=== PATIENT | female | born 1930 | race Caucasian/White ===

== ENCOUNTER → 2018-05-23 | Outpatient (CLI) | payer MEDICARE ==
[2018-05-23 10:12] LABS: BASO % 0.6 % (0.0-1.0); EOS # 0.1 10^3/uL (0.0-0.50); EOS % 1.7 % (0.0-3.0); HEMOGLOBIN 12.8 g/dl (12.0-15.5); IMMATURE GRANULOCYTE % 0.2 % (0-3.0); LYMPH % 19.9 % (24.0-44.0); MEAN CORPUSCULAR HEMOGLOBIN 31.8 pg (27.0-33.0); MEAN CORPUSCULAR VOLUME 99.3 fl (80.0-96.0); MONO # 0.4 10^3/uL (0.0-0.8); MONO % 7.9 % (0.0-5.0); NEUTROPHILS # 3.3 10^3/uL (1.8-7.7); NEUTROPHILS % 69.7 % (36.0-66.0); PLATELET COUNT, AUTOMATED 102 10^3/uL (150-450); RED BLOOD COUNT 4.03 10^6/uL (4.00-5.40); RED CELL DISTRIBUTION WIDTH 13.4 % (11.5-14.5); WHITE BLOOD COUNT 4.8 10^3/uL (4.0-10.0)
[2018-05-23 10:33] LABS: TOTAL PROTEIN 7.1 GM/DL (6.4-8.2)
[2018-05-23 10:34] LABS: ALBUMIN 4.2 GM/DL (3.2-5.2); ALKALINE PHOSPHATASE 123 U/L (45-117); ALT/SGPT 24 U/L (12-78); ANION GAP 5 MEQ/L (8-16); AST/SGOT 24 U/L (7-37); BILIRUBIN,TOTAL 0.7 MG/DL (0.2-1.0); BLOOD UREA NITROGEN 25 MG/DL (7-18); CALCIUM LEVEL 9.7 MG/DL (8.8-10.2); CARBON DIOXIDE LEVEL 30 MEQ/L (21-32); CHLORIDE LEVEL 106 MEQ/L (98-107); CREATININE FOR GFR 1.15 MG/DL (0.55-1.30); FERRITIN 61 NG/ML (8-252); GLOMERULAR FILTRATION RATE 47.4 (>32); GLUCOSE, FASTING 92 MG/DL (70-100); IRON (FE) 65 UG/DL (50-170); LDH LACTATE DEHYDROGENASE 194 U/L (84-246); PERCENT SATURATION 17.7 % (13.2-45.0); POTASSIUM SERUM 3.9 MEQ/L (3.5-5.1); RHEUMATOID FACTOR QUANT < 10.0 IU/ML (<15.0); SODIUM LEVEL 141 MEQ/L (136-145); TOTAL IRON BINDING CAPACITY 367 UG/DL (250-450); TOTAL PROTEIN 7.2 GM/DL (6.4-8.2)
[2018-05-23 11:12] LABS: ERYTHROCYTE SEDIMENTATION RATE 7 mm/hr (0-42)
[2018-05-25 11:14] LABS: ALBUMIN 4.27 GM/DL (3.29-5.55); ALBUMIN % 60.1 % (55.8-66.1); ALPHA-1-GLOBULIN % 4.8 % (2.9-4.9); ALPHA-1-GLOBULINS 0.34 GM/DL (0.17-0.41); ALPHA-2-GLOBULINS 0.77 GM/DL (0.42-0.99); ALPHA-2-GLOBULINS % 10.9 % (7.1-11.8); BETA-1-GLOBULINS 0.49 GM/DL (0.28-0.60); BETA-1-GLOBULINS % 6.9 % (4.7-7.2); BETA-2-GLOBULINS 0.31 GM/DL (0.19-0.55); BETA-2-GLOBULINS % 4.3 % (3.2-6.5); GAMMA GLOBULINS 0.92 GM/DL (0.65-1.58)
[2018-05-26 00:07] LABS: CYCLIC CITRULLINATED PEPTIDE 12 units (0-19)
[2018-05-26 00:07] LABS: ANTINUCLEAR ANTIBODIES DIRECT Negative (Negative)
== END ==
LOC: M RAD 08:52
DX: D61.818 Other pancytopenia (principal); J90 Pleural effusion, not elsewhere classified; R53.83 Other fatigue; R25.2 Cramp and spasm
CPT/HCPCS: 76700

== ENCOUNTER 2019-05-06 11:37 | Inpatient (IN) | payer MEDICARE ==
[~2019-05-06] VITALS: Ht 165.1 cm; Wt 57.7 kg
[~2019-05-06 11:37] MED LIST: AMBI5TAB PO; CARV6.25 PO; CENT1TAB PO; CENTCHW3 PO; ELIQ5TAB PO; ESTR62CR PV; FERR325T82 PO; HYDR-3363 PO; ISOS60TA2 PO; KLOR10TA76 PO; KLOR1TAB69 PO; LASI20TA3 PO; LEXA1TAB PO; LIPI10TA PO; LISI-538 PO; LISI10TA4 PO; MAGN250T7 PO; MELA3TAB49 PO; NEXI40CA PO; NITR4TASL SL; PLAV1TAB2 PO; REST0.05 OU; SIMB1SUS OU; TOPR50TA PO; TRAV0.006 OU; TRAV04OPD OU; TYLE1TAB5 PO; WARF-20 PO; WARF4TAB51 PO
[2019-05-06] MEDS ORDERED: ESCI20TA PO (12:02)
[2019-05-06] MEDS ORDERED: FERR1TAB8 PO (12:02)
[2019-05-06] MEDS ORDERED: SIMB1SUS OU (12:02)
[2019-05-06] MEDS ORDERED: LISI-538 PO (12:02)
[2019-05-06] MEDS ORDERED: ELIQ2.5T PO (12:02)
[2019-05-06] MEDS ORDERED: SENN18TA PO ×2 (12:02→12:08)
[2019-05-06] MEDS ORDERED: OCUVTAB4 PO (12:02)
[2019-05-06] MEDS ORDERED: MELA1TAB9 PO (12:02)
[2019-05-06] MEDS ORDERED: CENT1TAB PO (12:02)
[2019-05-06] MEDS ORDERED: FURO80TA2 PO (12:02)
[2019-05-06] MEDS ORDERED: ACET25TA12 PO (12:05)
[2019-05-06] MEDS ORDERED: ACET-683 PO (12:08)
[2019-05-06] MEDS ORDERED: MIRA3350 PO (12:08)
[2019-05-06] MEDS ORDERED: LOPE2CA PO (12:08)
[2019-05-06 12:32] LABS: BASO % 0.7 % (0.0-1.0); EOS # 0.1 10^3/uL (0.0-0.5); EOS % 1.5 % (0.0-3.0); HEMATOCRIT 45.1 % (36.0-47.0); HEMOGLOBIN 14.7 g/dl (12.0-15.5); LYMPH # 1.1 10^3/uL (1.5-5.0); LYMPH % 18.8 % (24.0-44.0); MEAN CORPUSCULAR HEMOGLOBIN 32.2 pg (27.0-33.0); MEAN CORPUSCULAR HGB CONC 32.6 g/dl (32.0-36.5); MEAN CORPUSCULAR VOLUME 98.9 fl (80.0-96.0); MONO # 0.6 10^3/uL (0.0-0.8); MONO % 10.7 % (0.0-5.0); NEUTROPHILS % 68.1 % (36.0-66.0); PLATELET COUNT, AUTOMATED 104 10^3/uL (150-450); RED BLOOD COUNT 4.56 10^6/uL (4.00-5.40); WHITE BLOOD COUNT 5.9 10^3/uL (4.0-10.0)
[2019-05-06 12:38] LABS: INR 1.2; PROTHROMBIN TIME 14.9 SECONDS (11.8-14.0)
--- NOTE | 2019-05-06 12:54 | REP ---
CT of the brain without IV contrast: Comparison is 12/09/2015. There is no hemorrhage. There is no edema, mass effect or midline shift. The sulci and ventricles are mildly dilated compatible with diffuse volume loss. This is unchanged. There are areas of decreased attenuation in the subcortical white matter, nonspecific, but likely a chronic microvascular ischemia. This is unchanged. There is hyperostosis frontalis interna, unchanged. Impression: There is no hemorrhage, acute infarct or mass. There are findings compatible with diffuse volume loss and chronic microvascular ischemia, unchanged. Hyperostosis frontalis interna, unchanged. Electronically Signed by Anthony Santos MD 05/06/2019 12:45 P
[2019-05-06 12:57] LABS: ALBUMIN 4.3 GM/DL (3.2-5.2); ALT/SGPT 32 U/L (12-78); BILIRUBIN,DIRECT 0.4 MG/DL (0.0-0.2); BILIRUBIN,TOTAL 1.1 MG/DL (0.2-1.0); BLOOD UREA NITROGEN 24 MG/DL (7-18); CARBON DIOXIDE LEVEL 29 MEQ/L (21-32); CHLORIDE LEVEL 105 MEQ/L (98-107); CK-MB VALUE MASS 1.8 NG/ML (<3.6); CPK CREATINE PHOSPHOKINASE 68 U/L (26-192); CREATININE FOR GFR 1.22 MG/DL (0.55-1.30); GLOMERULAR FILTRATION RATE 44.2 (>32); GLUCOSE, FASTING 111 MG/DL (70-100); MB/CK RELATIVE INDEX 2.65 (< OR =4); POTASSIUM SERUM 3.7 MEQ/L (3.5-5.1); SODIUM LEVEL 141 MEQ/L (136-145); TROPONIN I < 0.02 NG/ML (< 0.10)
--- NOTE | 2019-05-06 12:58 | REP ---
Portable chest, 12:32 p.m., single AP view with the patient upright: There are no comparison studies. The lung johnson are clear. The cardiac size is enlarged and the right cardiac margin has an unusual configuration. This may represent enlargement of the right atrium, pericardial cyst or myocardial aneurysm. There is a dual-chamber pacemaker. The cora are unremarkable. There is a vascular stent in the left axilla. There is widening of the superior mediastinum, possibly from thyroid enlargement. Impression: No acute cardiopulmonary findings. Unusual configuration of the right cardiac margin as discussed. Widening of the superior mediastinum, possibly from thyroid enlargement. There is a vascular stent in the left axilla. Electronically Signed by Anthony Santos MD 05/06/2019 12:50 P
[2019-05-06 18:00] VITALS: BP 90/47
[2019-05-06] MEDS ORDERED: SENNA 8.6 MG TAB (SENOKOT) PO PRN (18:45)
[2019-05-06] MEDS ORDERED: LOPERAMIDE 2 MG CAP PO PRN (18:45)
[2019-05-06] MEDS ORDERED: MIRALAX *UNIT DOSE* 17GM PACKET PO PRN (18:45)
--- NOTE | 2019-05-06 18:54 | HPE ---
DATE OF ADMISSION: 05/06/2019 CHIEF COMPLAINT: Confusion. HISTORY OF PRESENT ILLNESS: This is an 88-year-old female who was brought in by ambulance after [facility] staff had noted that she was staring at her dresser and randomly picking out clothes last night. When they checked up on her again today, the patient was not any different. The could not provide any history as he could not recall how he ended up in the emergency room with his . Per the patient, she denies any nausea, vomiting, abdominal pain, fever, chills, cough. Denies any dysuria, urgency, frequency, back pain or flank pain. In the emergency room, evaluation included a complete blood count (CBC) and metabolic panel, which were all essentially normal. CT showed diffuse volume loss and chronic microvascular ischemia. Chest x-ray was unremarkable and did not show any pneumonia. There was widening of the superior mediastinum, possibly from thyroid enlargement, and a vascular stent in the left axilla. The and patient could not provide any history. The hospitalist service was asked to admit for evaluation of confusion and potential placement since pt may not be safe at home anymore. At this time, urinalysis was negative. No empiric antibiotics are to be given. PAST MEDICAL HISTORY: 1. 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 Murcia, oncology. 2. Atrial fibrillation. 3. Heart failure. 4. Hypertension. 5. Hyperlipidemia. 6. History of kidney stones. 7. Insomnia. PAST SURGICAL HISTORY: 1. Hysterectomy. 2. Pacer. 3. Coronary artery stents. 4. Cardiac ablation for atrial fibrillation. 5. Tonsillectomy. 6. Hernia repair. 7. Hysterectomy. ALLERGIES: SULFA and NIACIN. SOCIAL HISTORY: The patient lives with her at [facility]. The patient denies any smoking, alcohol use. 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 Two children. HOME MEDICATIONS: - acetaminophen 1 gram every 8 hours as needed for pain - Eliquis 2.5 mg twice a day - Lipitor 10 mg daily - Coreg 6.25 twice a day - Lexapro 20 mg daily - Nexium 40 mg daily - ferrous sulfate 325 mg every 2 days - Lasix 80 mg daily - isosorbide 30 mg daily - Lisinopril 10 mg daily - loperamide 4 mg as needed - multivitamin one tablet in the evening - nitroglycerin as needed - MiraLAX 17 grams as needed - potassium 40 mEq daily - Senokot 8.6 mg as needed - Travatan one drop OU at night - PreserVision one tablet at night - acetaminophen diphenhydramine two tablets at night - Simbrinza one drop OU three times a day - Restasis one drop OU twice a day - magnesium oxide 250 mg daily - melatonin 5 mg at night REVIEW OF SYSTEMS: As per history of present illness. Further questioning is difficult as the patient is confused and has tangential conversations. PHYSICAL EXAMINATION: VITAL SIGNS: Temperature 97.4, pulse 69, respiratory rate 17, blood pressure 115/82, 100% on room air. GENERAL: The patient is awake, alert, oriented to herself only. She is not oriented to time or place. No respiratory distress. No use of respiratory accessory muscles. Pupils are round and reactive. No icterus or jaundice. There is no pallor. Speech is fluent. NECK: No cervical lymphadenopathy. There is some thyromegaly noted with thyroid enlargement. No difficulty with dysphagia or stridor on examination. LUNGS: Clear to auscultation. No wheezing, rales or rhonchi. HEART: S1, S2. Irregular. ABDOMEN: Soft, nontender, nondistended. Positive bowel sounds. EXTREMITIES: No cyanosis or clubbing. NEUROLOGIC: Awake, alert, oriented to person only. Disoriented to place and time. The patient has no horizontal or vertical nystagmus. Face is symmetric. No tremors noted. 5/5 motor function times four extremities. Gait was not tested. No sensory disturbance. Tongue is midline. Downgoing bilateral toes. Negative Babinski bilaterally. White count 5.9, hemoglobin 14, hematocrit 45, platelet count 104. Sodium 141, potassium 2.7, chloride 105, bicarbonate 29, BUN 24, creatinine 1.22, glucose 111, total bilirubin 1.1, direct bilirubin 0.4, AST 24, ALT 32, alkaline phosphatase 112, total CK 68, MB fraction 1.8, troponin less than 0.02, total protein 8, albumin 4.3, TSH 1.17. Urine culture is pending. IMAGING STUDIES: CT of the head shows diffuse volume loss, chronic microvascular ischemia, which is unchanged. No hemorrhage, edema, mass effect or midline shift. Sulci and ventricles are dilated, compatible with diffuse volume loss. This is unchanged. Areas of decreased attenuation in the cortical white matter. Nonspecific but likely a chronic microvascular ischemia. No hemorrhage, acute infarct or mass. Hyperostosis from talis interna, which is unchanged. Chest x-ray on 05/06/2019 showed no acute cardiopulmonary findings, widening of the superior mediastinum, most likely due to thyroid enlargement. Urinalysis showed pH 6, clear appearance, negative nitrite, trace leukocyte esterase, 6 WBCs, negative bacteria, 4 RBCs. INR 1.20, glucose of 112. ASSESSMENT AND PLAN: This is an 88-year-old female with a history of atrial fibrillation without CVA, chronic thrombocytopenia, possible myelodysplastic syndrome, followed by hematology, dyslipidemia , hypertension, insomnia, kidney stones, cardiac ablation for atrial fibrillation, pacemaker placement, coronary artery stents, coronary artery disease, who presents with confusion, staring into space at [facility], was brought in for further evaluation. Prolactin level is pending. The patient is admitted for the following issues: 1. Altered mental status. At this time, the patient appears to have worsening dementia. No acute findings on basic workup. CBC and metabolic panel are unremarkable. The patient has no signs of infection, both chest x-ray and urine are negative. She has no fever. No empiric antibiotics are warranted. Obtain an electroencephalogram (EEG) in the morning and check prolactin level for a possible stroke. CT of the head shows chronic microvascular changes. She may be resumed on all of her home medications. We will consult neurology if the patient has no significant improvement, may benefit from Aricept or Namenda. 2. Atrial fibrillation. On chronic Eliquis. Coreg for rate control. check MRI brain. 3. Hypertension. On isosorbide, Lisinopril, and Coreg. 4. Chronic iron deficiency. Continue on ferrous sulfate. 5. Chronic constipation. Continue on bowel regimen, including MiraLAX, Senokot. 6. Dyslipidemia. Continue on Lipitor. disposition: pfs consulted as pt is not safe for d/c home due to worsening dementia. MTDD
[2019-05-06] MEDS: NS 1,000 ML IV SCH (18:57)
[2019-05-06 20:00] VITALS: BP 96/54
--- NOTE | 2019-05-06 20:31 | ECGEPIP ---
[facility] - ED Test Date: 2019-05-06 Pat Name: JOSEMANUEL BRAVO Department: Room: - Gender: Female Comb Winder: sb : 1930 Requested By: Teena Serna Order Number: [id number] Reading MD: Teena Serna Measurements Intervals [place] Rate: 70 P: [place]: 0 QRS: -84 QRSD: 169 T: 95 QT: 466 QTc: 505 Interpretive Statements ELECTRONIC VENTRICULAR PACEMAKER ABNORMAL RHYTHM ECG SIMILAR 12/09/15 Electronically Signed on 05-06-2019 20:30:52 EDT by Teena Seran
[2019-05-06] MEDS: APIXABAN 2.5 MG TAB (ELIQUIS) PO SCH (20:52)
[2019-05-06] MEDS: ACETAMINOPHEN 500 MG TAB PO PRN (20:52)
[2019-05-06] MEDS: MULTIVITAMINS/MINERALS THERAP 1 TAB PO SCH (20:53)
[2019-05-06] MEDS: CARVedilol 6.25 MG TAB PO SCH (20:53)
[2019-05-06] MEDS: LATANOPROST 0.005% OPHTH SOLN 2.5 ML OU SCH (21:23)
[2019-05-06 23:59] VITALS: BP 98/52
[2019-05-07 04:00] VITALS: BP 113/61
[2019-05-07 06:08] LABS: HEMATOCRIT 38.9 % (36.0-47.0); MEAN CORPUSCULAR HEMOGLOBIN 31.7 pg (27.0-33.0); MEAN CORPUSCULAR HGB CONC 32.4 g/dl (32.0-36.5); MEAN CORPUSCULAR VOLUME 97.7 fl (80.0-96.0); RED BLOOD COUNT 3.98 10^6/uL (4.00-5.40); WHITE BLOOD COUNT 4.1 10^3/uL (4.0-10.0)
[2019-05-07 06:35] LABS: ALBUMIN 3.5 GM/DL (3.2-5.2); CALCIUM LEVEL 9.3 MG/DL (8.8-10.2); CREATININE FOR GFR 0.97 MG/DL (0.55-1.30); GLOMERULAR FILTRATION RATE 57.6 (>32); POTASSIUM SERUM 3.4 MEQ/L (3.5-5.1); TOTAL PROTEIN 6.6 GM/DL (6.4-8.2)
[2019-05-07 06:47] LABS: HEMOGLOBIN 12.6 g/dl (12.0-15.5); PLATELET COUNT, AUTOMATED 92 10^3/uL (150-450)
[2019-05-07] MEDS ORDERED: POTASSIUM CHLORIDE 10% LIQ 20 MEQ/15 ML UDC PO ONE (07:45)
[2019-05-07 08:00] VITALS: BP 120/62
[2019-05-07] MEDS: POTASSIUM CHLORIDE 10 MEQ SR TABLET PO SCH (08:28)
[2019-05-07] MEDS: ATORVASTATIN 10 MG TAB PO SCH (08:28)
[2019-05-07] MEDS: PANTOPRAZOLE 40MG TAB (PROTONIX) PO SCH (08:28)
[2019-05-07] MEDS: APIXABAN 2.5 MG TAB (ELIQUIS) PO SCH ×2 (08:28→20:11)
[2019-05-07] MEDS: ESCITALOPRAM OXALATE 10 MG TAB (LEXAPRO) PO SCH (08:28)
[2019-05-07] MEDS: ISOSORBIDE MON. (IMDUR) 30 MG XR TAB PO SCH (08:30)
[2019-05-07] MEDS: CARVedilol 6.25 MG TAB PO SCH ×2 (08:31→20:11)
[2019-05-07] MEDS: LISINOPRIL 10 MG TAB PO SCH (08:31)
[2019-05-07] MEDS: NS 1,000 ML IV SCH (08:31)
[2019-05-07 12:00] VITALS: BP 134/67
--- NOTE | 2019-05-07 13:45 | IPN ---
DATE OF SERVICE: 05/07/2019 The patient remains disoriented. Does not know where she is, and she does not know the date and time. She is able to say her name, Maria G Vargas. She has purposeful movements. Otherwise, cooperative and following commands. She denies any shortness of breath, chest pain, pressure, tightness, lightheadedness, or dizziness. Has not been up from bed yet and did not have any breakfast this morning yet. Slept well last night. Denies any paroxysmal nocturnal dyspnea or orthopnea or dyspnea on exertion yesterday. Tolerating diet well. Denies any cough, fever, or chills. Temperature 97.5, pulse 70, respiratory rate 18, blood pressure 134/67, 98% on room air. Generally, the patient is awake, alert, oriented to person only. She does answer questions appropriately but is tangential. Not using any respiratory accessory muscles. Anicteric sclerae. No jaundice. Very dry mucous membranes. Poor dentition. No jugular venous distention. No cervical lymphadenopathy. Slight thyroid enlargement. No complaints of dysphagia or odynophagia. LUNGS: Are diminished but clear to auscultation. No wheezing, rales, or rhonchi. HEART: S1, S2 with sinus rhythm. ABDOMEN: Soft, nontender, nondistended. Scaphoid abdomen. No rebound, guarding. No hepatosplenomegaly. No abdominal bruits. Positive bowel sounds times four quadrants. EXTREMITIES: No cyanosis, clubbing, or any pitting edema. Neurologically, the patient has no facial asymmetry. Tongue is midline. Uvula is midline. No dysmetria on [id number] testing. Motor function is 5/5 times four extremities. No sensory disturbance. Gait was not tested. Downgoing toes negative. Babinski bilaterally. LABORATORY DATA: White count 4, hemoglobin 12, hematocrit 38, platelet count 92. Sodium 142, potassium 3.4, chloride 110, bicarbonate 25, BUN 20, creatinine 0.97, glucose of 104, lactic acid of 1.4, calcium 9.3, total bilirubin of 1, AST 21, ALT 28, alkaline phosphatase of 91, procalcitonin is pending, albumin is 3.5, prolactin is 11, TSH is 1.17. Urine culture contaminated. Urinalysis: Clear appearance, negative nitrite, trace leukocyte esterase, 6 WBCs, 4 RBCs, negative bacteria. CT of the head 05/06/2019: Diffuse volume loss and chronic microvascular ischemia, unchanged. Hyperostosis frontalis interna, which is unchanged. No hemorrhage, mass effect. Chest x-ray: No acute cardiopulmonary finding, widening of the superior mediastinum from possible thyroid enlargement. Vascular stent in the left axilla. ASSESSMENT AND PLAN: This is an 88-year-old female with history of possible myelodysplastic syndrome with chronic thrombocytopenia follows with oncologist Dr. Divina Herr, atrial fibrillation on chronic anticoagulation, heart failure unknown ejection fraction, hypertension, hyperlipidemia, history of kidney stones, and insomnia, who was brought into the emergency room from [facility] due to altered mental status when the patient was staring at her dresser, removing clothes randomly. Both the patient and her are unable to provide history. A CT of the head showed no cerebrovascular accident (CVA). Blood work is essentially normal. Chest x-ray has no signs of pneumonia, and urinalysis (UA) is unremarkable. Due to safety reasons, the patient was admitted for possible potential placement. The patient's son will be contacted, [phone], Mike Vargas, for healthcare proxy guidance for placement. ACTIVE ISSUES: 1. Worsening chronic dementia without signs of acute infection. The patient is unsafe to be discharged home, as her is also quite demented and has no recollection of any recent events. There does not appear to be a need for empiric antibiotics at this time. She appears to be stable. Lactic acid is normal. She is afebrile with normal white count. Will obtain an electroencephalogram (EEG) to rule out possible seizure activity. MRI of the brain, if it can be done, will be to complete the evaluation. 2. Atrial fibrillation (AFib). On chronic Eliquis. CT of the head showed no acute CVA or hemorrhagic stroke. Coreg for rate control. 3. Hypertension. Stable on isosorbide, Lisinopril, and Coreg with holding parameters for systolic pressure of less than 140. Intravenous (IV) fluids have been discontinued. 4. Chronic iron deficiency. On ferrous sulfate. 5. Chronic constipation. On bowel regimen. 6. Dyslipidemia. On Lipitor. DISPOSITION: The patient is medically stable for transfer to medical-surgical floor. Discontinue the patient's telemetry, and she is stable for alternate level of care (ALC) and group home facility (SNF) placement. [facility]
[2019-05-07 16:00] VITALS: BP 117/42
[2019-05-07] MEDS: OCUVITE 1 TAB PO SCH (18:02)
[2019-05-07] MEDS: MULTIVITAMINS/MINERALS THERAP 1 TAB PO SCH (18:02)
[2019-05-07 20:00] VITALS: BP 116/46
[2019-05-07] MEDS: FERROUS SULFATE 325MG TAB PO SCH (20:11)
[2019-05-07] MEDS: LATANOPROST 0.005% OPHTH SOLN 2.5 ML OU SCH (20:11)
[2019-05-07] MEDS: ACETAMINOPHEN 500 MG TAB PO PRN (20:12)
[2019-05-07 23:59] VITALS: BP 116/52
[2019-05-08 04:00] VITALS: BP 122/56
[2019-05-08 06:26] LABS: HEMATOCRIT 40.6 % (36.0-47.0); HEMOGLOBIN 13.2 g/dl (12.0-15.5); MEAN CORPUSCULAR HEMOGLOBIN 32.5 pg (27.0-33.0); MEAN CORPUSCULAR HGB CONC 32.5 g/dl (32.0-36.5); RED BLOOD COUNT 4.06 10^6/uL (4.00-5.40); WHITE BLOOD COUNT 5.4 10^3/uL (4.0-10.0)
[2019-05-08 06:29] LABS: PLATELET COUNT, AUTOMATED 88 10^3/uL (150-450)
[2019-05-08 06:40] LABS: BLOOD UREA NITROGEN 20 MG/DL (7-18); CALCIUM LEVEL 9.5 MG/DL (8.8-10.2); CARBON DIOXIDE LEVEL 25 MEQ/L (21-32); CHLORIDE LEVEL 111 MEQ/L (98-107); CREATININE FOR GFR 0.92 MG/DL (0.55-1.30); GLOMERULAR FILTRATION RATE > 60.0 (>32); GLUCOSE, FASTING 110 MG/DL (70-100); POTASSIUM SERUM 3.9 MEQ/L (3.5-5.1); SODIUM LEVEL 141 MEQ/L (136-145)
[2019-05-08 08:00] VITALS: BP 120/62
[2019-05-08] MEDS: CARVedilol 6.25 MG TAB PO SCH ×2 (08:15→20:23)
[2019-05-08] MEDS: LISINOPRIL 10 MG TAB PO SCH (08:16)
[2019-05-08] MEDS: ISOSORBIDE MON. (IMDUR) 30 MG XR TAB PO SCH (08:16)
[2019-05-08] MEDS: POTASSIUM CHLORIDE 10 MEQ SR TABLET PO SCH (08:20)
[2019-05-08] MEDS: APIXABAN 2.5 MG TAB (ELIQUIS) PO SCH ×2 (08:20→20:23)
[2019-05-08] MEDS: ATORVASTATIN 10 MG TAB PO SCH (08:20)
[2019-05-08] MEDS: PANTOPRAZOLE 40MG TAB (PROTONIX) PO SCH (08:20)
[2019-05-08] MEDS: ESCITALOPRAM OXALATE 10 MG TAB (LEXAPRO) PO SCH (08:20)
[2019-05-08] MEDS: ACETAMINOPHEN 500 MG TAB PO PRN (08:21)
--- NOTE | 2019-05-08 08:35 | IPN ---
DATE OF SERVICE: 05/08/2019 Per night nurse, the patient remained extremely confused and disoriented, only knowing her name and was anxious to go home. The patient had to be reoriented and was cooperative. She did not require a sitter overnight. This morning, the patient refused to have some breakfast and says "no thank you". She denies any chest pain, pressure, tightness, shortness of breath, dysuria, urgency, frequency, fever, chills or flank pain. Maria G states that she usually walks with a cane, but has not been ambulating as much as at home. Temperature 97.6, pulse 72, respiratory rate 16, blood pressure 122/56, 98% on room air. Generally, awake, alert, oriented to person only. The patient is extremely disoriented, thinks it is 1959, does not know where she is. She has no respiratory distress. No cyanosis. No pallor. No icterus or jaundice. Poor dentition. Dry mucous membranes. Disheveled appearing. Appears her stated age. Lungs are clear to auscultation. Air entry is equal bilaterally. Heart: S1 and S2, sinus rhythm. Abdomen is soft, nontender, nondistended. Positive bowel sounds times four quadrant. No rebound or guarding. Scaphoid abdomen. No hepatosplenomegaly. Extremities: No cyanosis, clubbing or pitting edema. Neurologically, the patient is awake, alert, oriented to person only. She has no facial asymmetry. Tongue is midline. Uvula is midline. No dysmetria on finger to nose testing. Motor function is 5/5 times four extremities. Gait was not tested. No sensory disturbance. Down going toes. LABORATORY DATA: White count 5.4, hemoglobin 13, hematocrit 40, platelet count 88, sodium 141, potassium 3.9, chloride 88, bicarbonate 25, BUN 20, creatinine 0.92, glucose 110. Microbiology: Respiratory panel and urine cultures are negative. Chest x-ray with no acute cardiopulmonary process, widening of the superior mediastinum, possibly from thyroid enlargement. TSH is within normal limits ASSESSMENT AND PLAN: 88-year-old female admitted for potential placement and found to be staring. She has history of chronic thrombocytopenia and follows with oncologist Dr. Divina Herr, atrial fibrillation on chronic anticoagulation, heart failure unknown ejection fraction, hypertension, dyslipidmia, and kidney stones. Both patient and her were unable to provide a history. The patient was found b [facility] staff to be staring into space removing clothes from her dresser randomly. Due to safety reasons, the patient was admitted for placement. ACTIVE ISSUES: 1. Worsening chronic dementia without signs of any infection. The patient is unsafe to be discharged home with her elderly due to reports of patient staring into space. Electroencephalogram was ordered. Awaiting results. No empiric antiepileptic medications as patient has not had any recurrent episodes. 2. Atrial fibrillation. Currently rate controlled on chronic anticoagulation. 3. Iron deficiency. On iron every 48 hours. 4. Dyslipidemia. On chronic Lipitor. 5. Depression. On Lexapro. 6. Reflux. On Protonix. 7. Hypertension. Controlled on lisinopril, isosorbide and Coreg with holding parameters. 8. Chronic constipation. On a bowel regimen. DISPOSITION: The patient may be changed to alternate level of care (ALC) status after three hospital days as an inpatient and will need social placement to [facility]. JULISSA
--- NOTE | 2019-05-08 08:41 | EEG ---
DATE OF STUDY: 05/07/2019 REFERRING PHYSICIAN: Dr. Anna Guerrero DIAGNOSIS: Altered mental status. EEG Number: [id number] HISTORY: The patient is an 88-year-old woman with history of atrial fibrillation, myelodysplastic syndrome who lives at [facility] and was brought in for staring into space and confusion. This electroencephalogram (EEG) was done to rule out epileptic potential. She is currently taking Eliquis ,Lipitor, carvedilol, Lexapro, lisinopril, Protonix, etc.. TECHNICAL DESCRIPTION: This digital EEG was recorded by 21 scalp, ear, and two electrocardiogram (EKG) electrodes and was reviewed in bipolar and referential montages following reformatting in 10-20 international electrode placement system. INTERPRETATION: The patient was noted to be in awake and drowsy states during this EEG. Resting awake background rhythm consisted of 5-6 Hz theta activity measuring 15-40 microvolts in amplitude, which was symmetric bilaterally. The patient remained drowsy throughout this EEG. No clear sleep stages were identified. Hyperventilation could not be performed. Photic stimulation remained unremarkable. EKG revealed irregular heartbeat and atrial fibrillation. No focal, lateralizing, or epileptiform abnormalities were seen. No clinical or electrographic seizures were recorded. CONCLUSION: This EEG in awake and drowsy states is abnormal due to presence of generalized slowing and disorganization of background consistent with nonspecific diffuse cerebral dysfunction such as seen in encephalopathy due to multiple potential causes. No epileptiform abnormalities were seen. Clinical correlation is recommended in this patient. MTDD
[2019-05-08 12:00] VITALS: BP 117/62
[2019-05-08 16:00] VITALS: BP 147/53
[2019-05-08] MEDS: MULTIVITAMINS/MINERALS THERAP 1 TAB PO SCH (16:16)
[2019-05-08] MEDS: OCUVITE 1 TAB PO SCH (17:35)
[2019-05-08 20:00] VITALS: BP 150/66
[2019-05-08] MEDS: LATANOPROST 0.005% OPHTH SOLN 2.5 ML OU SCH (20:23)
[2019-05-08 22:00] VITALS: BP 162/90
[2019-05-09 06:00] VITALS: BP 180/90
[2019-05-09] MEDS: LISINOPRIL 10 MG TAB PO SCH (06:35)
[2019-05-09] MEDS: ESCITALOPRAM OXALATE 10 MG TAB (LEXAPRO) PO SCH (08:57)
[2019-05-09] MEDS: ATORVASTATIN 10 MG TAB PO SCH (08:57)
[2019-05-09] MEDS: POTASSIUM CHLORIDE 10 MEQ SR TABLET PO SCH (08:57)
[2019-05-09] MEDS: APIXABAN 2.5 MG TAB (ELIQUIS) PO SCH ×2 (08:58→20:22)
[2019-05-09] MEDS: CARVedilol 6.25 MG TAB PO SCH ×2 (08:58→20:23)
[2019-05-09] MEDS: PANTOPRAZOLE 40MG TAB (PROTONIX) PO SCH (08:58)
[2019-05-09] MEDS: ISOSORBIDE MON. (IMDUR) 30 MG XR TAB PO SCH (09:00)
--- NOTE | 2019-05-09 11:22 | IPNPDOC ---
Subjective Date Seen The patient was seen on 05/09/19. Subjective Chief Complaint/HPI Does not offer any complaints this morning. Did not remember that she was in the hospital . She was anxious as she said that she woke up and it was dark and she could not remember where she was. After reminding her that she was in the hospital she asked if it was the hospital in [place] or not. She then coud tell me the name of the hospital. Objective Physical Examination General Exam: Positive: Alert, Cooperative, No Acute Distress, Other (pleasantly confused) Eye Exam: Positive: PERRLA, Conjunctiva & lids normal, EOMI; Negative: Sclera icteric ENT Exam: Positive: Atraumatic, Mucous membr. moist/pink, Pharynx Normal Neck Exam: Positive: Supple; Negative: JVD, thyromegaly Chest Exam: Positive: Clear to auscultation, Normal air movement Heart Exam: Positive: Rate Normal, Regular Rhythm, Normal S1, Normal S2; Negative: Murmurs, Rubs Abdomen Exam: Positive: Normal bowel sounds, Soft; Negative: Tenderness, Hepatospenomegaly Extremity Exam: Positive: Normal pulses; Negative: Clubbing, Cyanosis, Edema Skin Exam: Positive: Nl turgor and temperature; Negative: Rash, Breakdown Psych Exam: Positive: Anxiety, Other (oriented to person only) Assessment /Plan Assessment 88-year-old female with history of chronic thrombocytopenia and follows with oncologist Dr. Divina Herr, atrial fibrillation on chronic anticoagulation, heart failure unknown ejection fraction, hypertension, dyslipidmia, and kidney stones was brought in as she was found by [facility] staff to be staring into space removing clothes from her dresser randomly. Both patient and her reside there. They were unable to provide a history. Due to safety reasons, the patient was admitted for placement. Worsening chronic dementia without signs of any infection. The patient is unsafe to be discharged home with her elderly due to reports of patient staring into space. No empiric antiepileptic medications as patient has not had any recurrent episodes. EEG reviewed Back ground sowing not epileptiform focus. Atrial fibrillation. Currently rate controlled on chronic anticoagulation. Macrocytosis will check vit B12 and folate levels. Iron deficiency. On iron every 48 hours. Dyslipidemia. On chronic Lipitor. Depression. On Lexapro. Reflux. On Protonix . Hypertension. Controlled on lisinopril, isosorbide and Coreg with holding parameters. Chronic constipation. On a bowel regimen. DISPOSITION: [facility] placement. Plan/VTE VTE Prophylaxis Ordered?: Yes VS, I&O, 24H, Fishbone Vital Signs/I&O Vital Signs Date Time Temp Pulse Resp B/P (MAP) Pulse Ox O2 Delivery O2 Flow Rate FiO2 05/09/19 09:00 127/90 05/09/19 08:58 75 05/09/19 06:00 98.5 20 99 05/06/19 17:53 Room Air I&O- Last 24 Hours up to 6 AM 05/09/19 05:59 Intake Total 918 ml Output Total 1100 ml Balance -182 ml Laboratory Data Microbiology Microbiology 05/08/19 Urine Culture - Final, Complete 05/07/19 Respiratory Virus Panel (PCR) (ELVA) - Final, Complete 05/06/19 Urine Culture - Final, Complete HUMBLE TOSCANO MD May 09, 2019 11:22
[2019-05-09 13:53] LABS: FOLATE > 24.0 NG/ML (>5.4); VITAMIN B12 LEVEL 760 PG/ML (247-911)
[2019-05-09 14:00] VITALS: BP 155/78
[2019-05-09] MEDS: OCUVITE 1 TAB PO SCH (18:20)
[2019-05-09] MEDS: MULTIVITAMINS/MINERALS THERAP 1 TAB PO SCH (18:20)
[2019-05-09] MEDS: FERROUS SULFATE 325MG TAB PO SCH (20:22)
[2019-05-09] MEDS: LATANOPROST 0.005% OPHTH SOLN 2.5 ML OU SCH (20:24)
[2019-05-09 22:00] VITALS: BP 126/80
[2019-05-10] MEDS: ACETAMINOPHEN 500 MG TAB PO PRN (00:21)
[2019-05-10 06:00] VITALS: BP 136/87
[2019-05-10] MEDS: PANTOPRAZOLE 40MG TAB (PROTONIX) PO SCH (08:57)
[2019-05-10] MEDS: LISINOPRIL 10 MG TAB PO SCH (08:58)
[2019-05-10] MEDS: ISOSORBIDE MON. (IMDUR) 30 MG XR TAB PO SCH (08:58)
[2019-05-10] MEDS: ATORVASTATIN 10 MG TAB PO SCH (08:58)
[2019-05-10] MEDS: ESCITALOPRAM OXALATE 10 MG TAB (LEXAPRO) PO SCH (08:58)
[2019-05-10] MEDS: POTASSIUM CHLORIDE 10 MEQ SR TABLET PO SCH (08:58)
[2019-05-10] MEDS: APIXABAN 2.5 MG TAB (ELIQUIS) PO SCH ×2 (08:58→21:08)
[2019-05-10] MEDS: CARVedilol 6.25 MG TAB PO SCH ×2 (08:59→21:11)
[2019-05-10] MEDS: OCUVITE 1 TAB PO SCH (16:53)
[2019-05-10] MEDS: MULTIVITAMINS/MINERALS THERAP 1 TAB PO SCH (16:53)
[2019-05-10 20:00] VITALS: BP 156/84
[2019-05-10] MEDS: LATANOPROST 0.005% OPHTH SOLN 2.5 ML OU SCH (21:07)
[2019-05-11 06:00] VITALS: BP 159/86
[2019-05-11] MEDS: PANTOPRAZOLE 40MG TAB (PROTONIX) PO SCH (08:25)
[2019-05-11] MEDS: APIXABAN 2.5 MG TAB (ELIQUIS) PO SCH ×2 (08:25→21:33)
[2019-05-11] MEDS: POTASSIUM CHLORIDE 10 MEQ SR TABLET PO SCH (08:25)
[2019-05-11] MEDS: ESCITALOPRAM OXALATE 10 MG TAB (LEXAPRO) PO SCH (08:25)
[2019-05-11] MEDS: ATORVASTATIN 10 MG TAB PO SCH (08:25)
[2019-05-11] MEDS: CARVedilol 6.25 MG TAB PO SCH ×2 (08:33→21:33)
[2019-05-11] MEDS: LISINOPRIL 10 MG TAB PO SCH (08:33)
[2019-05-11] MEDS: ISOSORBIDE MON. (IMDUR) 30 MG XR TAB PO SCH (08:33)
[2019-05-11] MEDS: MULTIVITAMINS/MINERALS THERAP 1 TAB PO SCH (17:12)
[2019-05-11] MEDS: OCUVITE 1 TAB PO SCH (17:12)
[2019-05-11] MEDS: FERROUS SULFATE 325MG TAB PO SCH (21:33)
[2019-05-11] MEDS: LATANOPROST 0.005% OPHTH SOLN 2.5 ML OU SCH (21:33)
[2019-05-11] MEDS: ACETAMINOPHEN 500 MG TAB PO PRN (23:22)
[2019-05-12 06:00] VITALS: BP 176/93
[2019-05-12] MEDS: LISINOPRIL 10 MG TAB PO SCH (08:20)
[2019-05-12] MEDS: POTASSIUM CHLORIDE 10 MEQ SR TABLET PO SCH (08:20)
[2019-05-12] MEDS: ESCITALOPRAM OXALATE 10 MG TAB (LEXAPRO) PO SCH (08:20)
[2019-05-12] MEDS: ISOSORBIDE MON. (IMDUR) 30 MG XR TAB PO SCH (08:21)
[2019-05-12] MEDS: APIXABAN 2.5 MG TAB (ELIQUIS) PO SCH ×2 (08:21→20:54)
[2019-05-12] MEDS: ATORVASTATIN 10 MG TAB PO SCH (08:21)
[2019-05-12] MEDS: CARVedilol 6.25 MG TAB PO SCH ×2 (08:21→20:54)
[2019-05-12] MEDS: PANTOPRAZOLE 40MG TAB (PROTONIX) PO SCH (08:21)
[2019-05-12] MEDS: OCUVITE 1 TAB PO SCH (18:12)
[2019-05-12] MEDS: MULTIVITAMINS/MINERALS THERAP 1 TAB PO SCH (18:12)
[2019-05-12] MEDS: LATANOPROST 0.005% OPHTH SOLN 2.5 ML OU SCH (21:01)
[2019-05-12 22:00] VITALS: BP 177/92
[2019-05-13 05:52] LABS: BASO % 0.5 % (0.0-1.0); EOS # 0.1 10^3/uL (0.0-0.5); HEMATOCRIT 35.2 % (36.0-47.0); HEMOGLOBIN 11.5 g/dl (12.0-15.5); LYMPH # 1.2 10^3/uL (1.5-5.0); LYMPH % 30.3 % (24.0-44.0); MEAN CORPUSCULAR HEMOGLOBIN 32.2 pg (27.0-33.0); MEAN CORPUSCULAR HGB CONC 32.7 g/dl (32.0-36.5); MEAN CORPUSCULAR VOLUME 98.6 fl (80.0-96.0); MONO # 0.4 10^3/uL (0.0-0.8); MONO % 10.3 % (0.0-5.0); NEUTROPHILS # 2.3 10^3/uL (1.5-8.5); NEUTROPHILS % 56.7 % (36.0-66.0); RED BLOOD COUNT 3.57 10^6/uL (4.00-5.40); WHITE BLOOD COUNT 4.1 10^3/uL (4.0-10.0)
[2019-05-13 06:00] VITALS: BP 150/86
[2019-05-13 06:02] LABS: PLATELET COUNT, AUTOMATED 95 10^3/uL (150-450)
[2019-05-13 06:08] LABS: CALCIUM LEVEL 9.4 MG/DL (8.8-10.2); CREATININE FOR GFR 1.08 MG/DL (0.55-1.30); GLOMERULAR FILTRATION RATE 50.9 (>32)
[2019-05-13] MEDS: ATORVASTATIN 10 MG TAB PO SCH (08:37)
[2019-05-13] MEDS: CARVedilol 6.25 MG TAB PO SCH ×2 (08:37→20:35)
[2019-05-13] MEDS: ISOSORBIDE MON. (IMDUR) 30 MG XR TAB PO SCH (08:37)
[2019-05-13] MEDS: PANTOPRAZOLE 40MG TAB (PROTONIX) PO SCH (08:37)
[2019-05-13] MEDS: POTASSIUM CHLORIDE 10 MEQ SR TABLET PO SCH (08:37)
[2019-05-13] MEDS: APIXABAN 2.5 MG TAB (ELIQUIS) PO SCH ×2 (08:38→20:36)
[2019-05-13] MEDS: ESCITALOPRAM OXALATE 10 MG TAB (LEXAPRO) PO SCH (08:38)
[2019-05-13] MEDS: LISINOPRIL 10 MG TAB PO SCH (08:38)
[2019-05-13] MEDS: OCUVITE 1 TAB PO SCH (16:58)
[2019-05-13] MEDS: MULTIVITAMINS/MINERALS THERAP 1 TAB PO SCH (16:58)
[2019-05-13] MEDS: FERROUS SULFATE 325MG TAB PO SCH (20:36)
[2019-05-13] MEDS: LATANOPROST 0.005% OPHTH SOLN 2.5 ML OU SCH (20:36)
[2019-05-13 22:00] VITALS: BP 176/90
--- NOTE | 2019-05-13 22:40 | IPNPDOC ---
Subjective Date Seen The patient was seen on 05/13/19. Subjective Chief Complaint/HPI patient remains pleasantly confused does not remember that she is at the hospital. but she knows she is in [place] and on prompting says the hospital name correctly. Does recognize . No complaints offered this morning. wants to go home. no fevre chiils Objective Physical Examination General Exam: Positive: Alert, Cooperative, No Acute Distress, Other (pleasantly confused) Eye Exam: Positive: PERRLA, Conjunctiva & lids normal, EOMI; Negative: Sclera icteric ENT Exam: Positive: Atraumatic, Mucous membr. moist/pink, Pharynx Normal Neck Exam: Positive: Supple; Negative: JVD, thyromegaly Chest Exam: Positive: Clear to auscultation, Normal air movement Heart Exam: Positive: Rate Normal, Regular Rhythm, Normal S1, Normal S2; Negative: Murmurs, Rubs Abdomen Exam: Positive: Normal bowel sounds, Soft; Negative: Tenderness, Hepatospenomegaly Extremity Exam: Positive: Normal pulses; Negative: Clubbing, Cyanosis, Edema Skin Exam: Positive: Nl turgor and temperature; Negative: Rash, Breakdown Psych Exam: Positive: Anxiety, Other (oriented to person only) Assessment /Plan Assessment 88-year-old female with history of chronic thrombocytopenia and follows with oncologist Dr. Divina Herr, atrial fibrillation on chronic anticoagulation, hea rt failure unknown ejection fraction, hypertension, dyslipidmia, and kidney stones was brought in as she was found by [facility] [place] staff to be staring into space removing clothes from her dresser randomly. Both patient and her reside there. They were unable to provide a history. Due to safety reasons, the patient was admitted for placement. Worsening chronic dementia without signs of any infection. The patient is unsafe to be discharged home with her elderly due to reports of patient staring into space. No empiric antiepileptic medications as patient has not had any recurrent episodes. EEG reviewed Back ground sowing not epileptiform focus. Atrial fibrillation. Currently rate controlled on chronic anticoagulation. Macrocytosis vit b12 and folate normal. Iron deficiency. On iron every 48 hours. Dyslipidemia. On chronic Lipitor. Depression. On Lexapro. Reflux. On Protonix . Hypertension. Controlled on lisinopril, isosorbide and Coreg with holding parameters. Chronic constipation. On a bowel regimen. DISPOSITION: snf NH placement. Plan/VTE VTE Prophylaxis Ordered?: Yes VS, I&O, 24H, Fishbone Vital Signs/I&O Vital Signs Date Time Temp Pulse Resp B/P (MAP) Pulse Ox O2 Delivery O2 Flow Rate FiO2 05/13/19 20:35 73 176/90 05/13/19 06:00 98.2 18 99 I&O- Last 24 Hours up to 6 AM 05/13/19 06:00 Intake Total 1104 ml Output Total 975 ml Balance 129 ml Laboratory Data 24H LABS Laboratory Tests 2 05/13/19 05:17: Immature Granulocyte % (Auto) 0.2, White Blood Count 4.1, Red Blood Count 3.57L, Hemoglobin 11.5L, Hematocrit 35.2L, Mean Corpuscular Volume 98.6H, Mean Corpuscular Hemoglobin 32.2, Mean Corpuscular Hemoglobin Concent 32.7, Red Cell Distribution Width 12.9, Platelet Count 95L, Neutrophils (%) (Auto) 56.7, Lymphocytes (%) (Auto) 30.3, Monocytes (%) (Auto) 10.3H, Eosinophils (%) (Auto) 2.0, Basophils (%) (Auto) 0.5, Neutrophils # (Auto) 2.3, Lymphocytes # (Auto) 1.2L, Monocytes # (Auto) 0.4, Eosinophils # (Auto) 0.1, Basophils # (Auto) 0.0, Nucleated Red Blood Cells % (auto) 0.0, Immature Platelet Fraction 3.0, Anion Gap 4L, Glomerular Filtration Rate 50.9, Blood Urea Nitrogen 25H, Creatinine 1.08, Sodium Level 138, Potassium Level 4.0, Chloride Level 109H, Carbon Dioxide Level 25, Calcium Level 9.4 CBC/BMP Laboratory Tests 05/13/19 05:17 Red Blood Count 3.57 L, Mean Corpuscular Volume 98.6 H, Mean Corpuscular Hemoglobin 32.2, Mean Corpuscular Hemoglobin Concent 32.7, Red Cell Distribution Width 12.9, Neutrophils (%) (Auto) 56.7, Lymphocytes (%) (Auto) 30.3, Monocytes (%) (Auto) 10.3 H, Eosinophils (%) (Auto) 2.0, Basophils (%) (Auto) 0.5, Neutrophils # (Auto) 2.3, Lymphocytes # (Auto) 1.2 L, Monocytes # (Auto) 0.4, Eosinophils # (Auto) 0.1, Basophils # (Auto) 0.0, Calcium Level 9.4 Microbiology Microbiology 05/08/19 Urine Culture - Final, Complete 05/07/19 Respiratory Virus Panel (PCR) (ELVA) - Final, Complete 05/06/19 Urine Culture - Final, Complete HUMBLE TOSCANO MD May 13, 2019 22:40
[2019-05-14] MEDS: RAMELTEON 8 MG TAB (ROZEREM) PO SCH ×2 (02:08→21:46)
[2019-05-14 06:00] VITALS: BP 149/88
[2019-05-14] MEDS: PANTOPRAZOLE 40MG TAB (PROTONIX) PO SCH (08:21)
[2019-05-14] MEDS: POTASSIUM CHLORIDE 10 MEQ SR TABLET PO SCH (08:21)
[2019-05-14] MEDS: ESCITALOPRAM OXALATE 10 MG TAB (LEXAPRO) PO SCH (08:21)
[2019-05-14] MEDS: APIXABAN 2.5 MG TAB (ELIQUIS) PO SCH ×2 (08:21→21:46)
[2019-05-14] MEDS: ATORVASTATIN 10 MG TAB PO SCH (08:21)
[2019-05-14] MEDS: LISINOPRIL 10 MG TAB PO SCH (08:22)
[2019-05-14] MEDS: CARVedilol 6.25 MG TAB PO SCH ×2 (08:22→21:47)
[2019-05-14] MEDS: ISOSORBIDE MON. (IMDUR) 30 MG XR TAB PO SCH (08:22)
[2019-05-14 10:00] VITALS: BP 142/78
[2019-05-14] MEDS: MULTIVITAMINS/MINERALS THERAP 1 TAB PO SCH (17:25)
[2019-05-14] MEDS: OCUVITE 1 TAB PO SCH (17:25)
[2019-05-14 21:44] VITALS: BP 162/82
[2019-05-14] MEDS: LATANOPROST 0.005% OPHTH SOLN 2.5 ML OU SCH (21:47)
[2019-05-14 22:00] VITALS: BP 160/81
[2019-05-15 06:00] VITALS: BP 161/82
[2019-05-15] MEDS: APIXABAN 2.5 MG TAB (ELIQUIS) PO SCH ×2 (08:26→20:34)
[2019-05-15] MEDS: ATORVASTATIN 10 MG TAB PO SCH (08:26)
[2019-05-15] MEDS: LISINOPRIL 10 MG TAB PO SCH (08:26)
[2019-05-15] MEDS: ISOSORBIDE MON. (IMDUR) 30 MG XR TAB PO SCH (08:26)
[2019-05-15] MEDS: ESCITALOPRAM OXALATE 10 MG TAB (LEXAPRO) PO SCH (08:26)
[2019-05-15] MEDS: CARVedilol 6.25 MG TAB PO SCH ×2 (08:27→20:34)
[2019-05-15] MEDS: PANTOPRAZOLE 40MG TAB (PROTONIX) PO SCH (08:27)
[2019-05-15] MEDS: POTASSIUM CHLORIDE 10 MEQ SR TABLET PO SCH (08:27)
[2019-05-15] MEDS: ACETAMINOPHEN 500 MG TAB PO PRN (11:55)
[2019-05-15] MEDS: MULTIVITAMINS/MINERALS THERAP 1 TAB PO SCH (17:00)
[2019-05-15] MEDS: OCUVITE 1 TAB PO SCH (17:00)
--- NOTE | 2019-05-15 17:43 | IPN ---
DATE: 05/15/2019 Per the patient's who is very hard of hearing and the patient's son at the bedside, she continues to have poor appetite and has not been eating well. According to the son, she is encouraged to take increased fluid and has had pretty frequent voids. The patient had two bowel movements yesterday, both of which were formed. Currently does not have any shortness of breath, chest pain, pressure. Despite blood pressure of 160, denies any headache, chest pain or changes in vision. PHYSICAL EXAMINATION: VITAL SIGNS: Temperature 96.9, pulse 70, respiratory rate 19, blood pressure 161/82, 96% on room air. GENERAL: Awake, alert, and oriented to person only, disoriented to date. He is asleep but arousable. Able to answer questions appropriately. No respiratory distress. Anicteric sclerae. No jaundice. No jugular venous distention (JVD) or thyromegaly. Dry mucous membranes. LUNGS: Clear to auscultation. No wheezing, rales or rhonchi. HEART: S1, S2. Sinus rhythm. ABDOMEN: Soft, nontender, nondistended. No hepatosplenomegaly. No abdominal bruits. EXTREMITIES: No cyanosis, clubbing or pitting edema. Laboratory data and imaging studies have been reviewed. ASSESSMENT AND PLAN: 88-year-old with a history of atrial fibrillation on chronic anticoagulation, lives at [facility] with her , history of kidney stones, heart failure, hypertension, chronic thrombocytopenia, sees dressmaker helper Dr. Herr, had been living at home when she was found to be staring into space, removing clothes from her dresser. The patient was admitted for placement. 1. Worsening chronic dementia without active signs of infection. Electroencephalogram (EEG) shows slowing but no epilepsy. The patient will need increased care, is currently awaiting placement in assisted living. 2. Atrial fibrillation on chronic anticoagulation. 3. Iron deficiency anemia. On chronic supplemental iron. 4. Hypertension. On Lisinopril, isosorbide, Coreg with holding parameters. 5. Chronic constipation. On bowel regimen. 6. Dyslipidemia. On chronic Lipitor. 7. Depression. On Lexapro. 8. Reflux. On Protonix. 9. Diarrhea. discontinue bowel regimen. if persistent despite stopping bowel regimen, check pcr for cdiff. DISPOSITION: Awaiting placement. [facility]
[2019-05-15 20:31] VITALS: BP 155/79
[2019-05-15] MEDS: RAMELTEON 8 MG TAB (ROZEREM) PO SCH (20:33)
[2019-05-15] MEDS: LATANOPROST 0.005% OPHTH SOLN 2.5 ML OU SCH (20:34)
[2019-05-15] MEDS: FERROUS SULFATE 325MG TAB PO SCH (20:34)
[2019-05-16 06:00] VITALS: BP 171/83
[2019-05-16 06:22] VITALS: BP 152/82
[2019-05-16] MEDS: ESCITALOPRAM OXALATE 10 MG TAB (LEXAPRO) PO SCH (09:18)
[2019-05-16] MEDS: CARVedilol 6.25 MG TAB PO SCH ×2 (09:18→20:11)
[2019-05-16] MEDS: PANTOPRAZOLE 40MG TAB (PROTONIX) PO SCH (09:19)
[2019-05-16] MEDS: ATORVASTATIN 10 MG TAB PO SCH (09:19)
[2019-05-16] MEDS: POTASSIUM CHLORIDE 10 MEQ SR TABLET PO SCH (09:20)
[2019-05-16] MEDS: LISINOPRIL 10 MG TAB PO SCH (09:20)
[2019-05-16] MEDS: APIXABAN 2.5 MG TAB (ELIQUIS) PO SCH ×2 (09:20→20:11)
[2019-05-16] MEDS: ISOSORBIDE MON. (IMDUR) 30 MG XR TAB PO SCH (09:26)
[2019-05-16] MEDS: MULTIVITAMINS/MINERALS THERAP 1 TAB PO SCH (18:25)
[2019-05-16] MEDS: OCUVITE 1 TAB PO SCH (18:25)
[2019-05-16] MEDS: RAMELTEON 8 MG TAB (ROZEREM) PO SCH (20:11)
[2019-05-16] MEDS: LATANOPROST 0.005% OPHTH SOLN 2.5 ML OU SCH (20:12)
[2019-05-17 06:00] VITALS: BP 159/82
[2019-05-17] MEDS: ESCITALOPRAM OXALATE 10 MG TAB (LEXAPRO) PO SCH (10:17)
[2019-05-17] MEDS: CARVedilol 6.25 MG TAB PO SCH ×2 (10:18→20:10)
[2019-05-17] MEDS: LISINOPRIL 10 MG TAB PO SCH (10:18)
[2019-05-17] MEDS: POTASSIUM CHLORIDE 10 MEQ SR TABLET PO SCH (10:18)
[2019-05-17] MEDS: APIXABAN 2.5 MG TAB (ELIQUIS) PO SCH ×2 (10:19→20:10)
[2019-05-17] MEDS: ISOSORBIDE MON. (IMDUR) 30 MG XR TAB PO SCH (10:19)
[2019-05-17] MEDS: ATORVASTATIN 10 MG TAB PO SCH (10:19)
[2019-05-17] MEDS: PANTOPRAZOLE 40MG TAB (PROTONIX) PO SCH (10:19)
[2019-05-17 14:00] VITALS: BP 144/72
[2019-05-17] MEDS: OCUVITE 1 TAB PO SCH (17:20)
[2019-05-17] MEDS: MULTIVITAMINS/MINERALS THERAP 1 TAB PO SCH (17:20)
[2019-05-17] MEDS: LATANOPROST 0.005% OPHTH SOLN 2.5 ML OU SCH (20:09)
[2019-05-17] MEDS: RAMELTEON 8 MG TAB (ROZEREM) PO SCH (20:10)
[2019-05-17] MEDS: FERROUS SULFATE 325MG TAB PO SCH (20:10)
[2019-05-18 05:33] VITALS: BP 153/76
[2019-05-18] MEDS: ESCITALOPRAM OXALATE 10 MG TAB (LEXAPRO) PO SCH (08:22)
[2019-05-18] MEDS: ATORVASTATIN 10 MG TAB PO SCH (08:22)
[2019-05-18] MEDS: APIXABAN 2.5 MG TAB (ELIQUIS) PO SCH ×2 (08:22→21:17)
[2019-05-18] MEDS: ISOSORBIDE MON. (IMDUR) 30 MG XR TAB PO SCH (08:23)
[2019-05-18] MEDS: PANTOPRAZOLE 40MG TAB (PROTONIX) PO SCH (08:23)
[2019-05-18] MEDS: CARVedilol 6.25 MG TAB PO SCH ×2 (08:23→21:18)
[2019-05-18] MEDS: LISINOPRIL 10 MG TAB PO SCH (08:23)
[2019-05-18] MEDS: POTASSIUM CHLORIDE 10 MEQ SR TABLET PO SCH (08:24)
[2019-05-18] MEDS: OCUVITE 1 TAB PO SCH (16:39)
[2019-05-18] MEDS: MULTIVITAMINS/MINERALS THERAP 1 TAB PO SCH (16:39)
[2019-05-18] MEDS: RAMELTEON 8 MG TAB (ROZEREM) PO SCH (21:17)
[2019-05-18] MEDS: MAGNESIUM OXIDE 400 MG TAB (MAG-OX) PO SCH (21:17)
[2019-05-18] MEDS: LATANOPROST 0.005% OPHTH SOLN 2.5 ML OU SCH (21:18)
[2019-05-19 06:00] VITALS: BP 161/81
[2019-05-19] MEDS: ISOSORBIDE MON. (IMDUR) 30 MG XR TAB PO SCH (08:29)
[2019-05-19] MEDS: ESCITALOPRAM OXALATE 10 MG TAB (LEXAPRO) PO SCH (08:29)
[2019-05-19] MEDS: ATORVASTATIN 10 MG TAB PO SCH (08:29)
[2019-05-19] MEDS: PANTOPRAZOLE 40MG TAB (PROTONIX) PO SCH (08:29)
[2019-05-19] MEDS: CARVedilol 6.25 MG TAB PO SCH ×2 (08:30→20:13)
[2019-05-19] MEDS: LISINOPRIL 10 MG TAB PO SCH (08:30)
[2019-05-19] MEDS: APIXABAN 2.5 MG TAB (ELIQUIS) PO SCH ×2 (08:30→20:13)
[2019-05-19] MEDS: POTASSIUM CHLORIDE 10 MEQ SR TABLET PO SCH (08:30)
[2019-05-19] MEDS: OCUVITE 1 TAB PO SCH (16:18)
[2019-05-19] MEDS: MULTIVITAMINS/MINERALS THERAP 1 TAB PO SCH (16:18)
[2019-05-19] MEDS: RAMELTEON 8 MG TAB (ROZEREM) PO SCH (20:12)
[2019-05-19] MEDS: FERROUS SULFATE 325MG TAB PO SCH (20:13)
[2019-05-19] MEDS: LATANOPROST 0.005% OPHTH SOLN 2.5 ML OU SCH (20:13)
[2019-05-19] MEDS: MAGNESIUM OXIDE 400 MG TAB (MAG-OX) PO SCH (20:13)
[2019-05-19] MEDS ORDERED: MELATONIN 5mg (PATIENT'S OWN MED) PO SCH (21:00)
[2019-05-20 06:00] VITALS: BP 133/70
[2019-05-20] MEDS: PANTOPRAZOLE 40MG TAB (PROTONIX) PO SCH (10:27)
[2019-05-20] MEDS: ESCITALOPRAM OXALATE 10 MG TAB (LEXAPRO) PO SCH (10:28)
[2019-05-20] MEDS: APIXABAN 2.5 MG TAB (ELIQUIS) PO SCH ×2 (10:28→20:45)
[2019-05-20] MEDS: ISOSORBIDE MON. (IMDUR) 30 MG XR TAB PO SCH (10:28)
[2019-05-20] MEDS: ATORVASTATIN 10 MG TAB PO SCH (10:28)
[2019-05-20] MEDS: CARVedilol 6.25 MG TAB PO SCH ×2 (10:28→20:43)
[2019-05-20] MEDS: POTASSIUM CHLORIDE 10 MEQ SR TABLET PO SCH (10:29)
[2019-05-20] MEDS: LISINOPRIL 10 MG TAB PO SCH (10:29)
[2019-05-20] MEDS: OCUVITE 1 TAB PO SCH (17:45)
[2019-05-20] MEDS: MULTIVITAMINS/MINERALS THERAP 1 TAB PO SCH (17:45)
[2019-05-20] MEDS: MAGNESIUM OXIDE 400 MG TAB (MAG-OX) PO SCH (20:44)
[2019-05-20] MEDS: LATANOPROST 0.005% OPHTH SOLN 2.5 ML OU SCH (20:45)
[2019-05-20] MEDS: RAMELTEON 8 MG TAB (ROZEREM) PO SCH (20:45)
[2019-05-21 06:00] VITALS: BP 155/88
[2019-05-21] MEDS: POTASSIUM CHLORIDE 10 MEQ SR TABLET PO SCH (08:04)
[2019-05-21] MEDS: PANTOPRAZOLE 40MG TAB (PROTONIX) PO SCH (08:04)
[2019-05-21] MEDS: ATORVASTATIN 10 MG TAB PO SCH (08:04)
[2019-05-21] MEDS: APIXABAN 2.5 MG TAB (ELIQUIS) PO SCH ×2 (08:04→20:41)
[2019-05-21] MEDS: ESCITALOPRAM OXALATE 10 MG TAB (LEXAPRO) PO SCH (08:05)
[2019-05-21] MEDS: LISINOPRIL 10 MG TAB PO SCH (08:06)
[2019-05-21] MEDS: CARVedilol 6.25 MG TAB PO SCH ×2 (08:07→20:43)
[2019-05-21] MEDS: ISOSORBIDE MON. (IMDUR) 30 MG XR TAB PO SCH (08:07)
[2019-05-21] MEDS: MULTIVITAMINS/MINERALS THERAP 1 TAB PO SCH (17:42)
[2019-05-21] MEDS: OCUVITE 1 TAB PO SCH (17:42)
[2019-05-21] MEDS: MAGNESIUM OXIDE 400 MG TAB (MAG-OX) PO SCH (20:41)
[2019-05-21] MEDS: RAMELTEON 8 MG TAB (ROZEREM) PO SCH (20:41)
[2019-05-21] MEDS: FERROUS SULFATE 325MG TAB PO SCH (20:41)
[2019-05-21] MEDS: LATANOPROST 0.005% OPHTH SOLN 2.5 ML OU SCH (20:43)
[2019-05-22 06:00] VITALS: BP 112/66
[2019-05-22] MEDS: CARVedilol 6.25 MG TAB PO SCH ×2 (09:55→20:04)
[2019-05-22] MEDS: ISOSORBIDE MON. (IMDUR) 30 MG XR TAB PO SCH (09:56)
[2019-05-22] MEDS: LISINOPRIL 10 MG TAB PO SCH (09:56)
[2019-05-22] MEDS: ESCITALOPRAM OXALATE 10 MG TAB (LEXAPRO) PO SCH (09:56)
[2019-05-22] MEDS: POTASSIUM CHLORIDE 10 MEQ SR TABLET PO SCH (09:56)
[2019-05-22] MEDS: ATORVASTATIN 10 MG TAB PO SCH (09:56)
[2019-05-22] MEDS: APIXABAN 2.5 MG TAB (ELIQUIS) PO SCH ×2 (09:56→20:04)
[2019-05-22] MEDS: PANTOPRAZOLE 40MG TAB (PROTONIX) PO SCH (09:58)
[2019-05-22] MEDS: OCUVITE 1 TAB PO SCH (17:47)
[2019-05-22] MEDS: MULTIVITAMINS/MINERALS THERAP 1 TAB PO SCH (17:47)
[2019-05-22] MEDS: RAMELTEON 8 MG TAB (ROZEREM) PO SCH (20:03)
[2019-05-22] MEDS: LATANOPROST 0.005% OPHTH SOLN 2.5 ML OU SCH (20:04)
[2019-05-22] MEDS: MAGNESIUM OXIDE 400 MG TAB (MAG-OX) PO SCH (20:04)
[2019-05-23] MEDS: LISINOPRIL 20 MG TAB PO SCH ×2 (04:08→20:37)
[2019-05-23 06:00] VITALS: BP 142/70
[2019-05-23] MEDS: APIXABAN 2.5 MG TAB (ELIQUIS) PO SCH ×2 (08:17→20:36)
[2019-05-23] MEDS: PANTOPRAZOLE 40MG TAB (PROTONIX) PO SCH (08:17)
[2019-05-23] MEDS: ISOSORBIDE MON. (IMDUR) 30 MG XR TAB PO SCH (08:22)
[2019-05-23] MEDS: ESCITALOPRAM OXALATE 10 MG TAB (LEXAPRO) PO SCH (08:22)
[2019-05-23] MEDS: ATORVASTATIN 10 MG TAB PO SCH (08:23)
[2019-05-23] MEDS: CARVedilol 6.25 MG TAB PO SCH ×2 (08:23→20:37)
[2019-05-23] MEDS: POTASSIUM CHLORIDE 10 MEQ SR TABLET PO SCH (08:23)
--- NOTE | 2019-05-23 15:02 | IPNPDOC ---
Subjective Date Seen The patient was seen on 05/23/19. Subjective Chief Complaint/HPI No complaints this am, laying down comfortably in bed pleasantly confused, denies any pain. Said slept well at night. Diarrhea from last week has resolved. Objective Physical Examination General Exam: Positive: Alert, Cooperative, No Acute Distress, Other (pleasantly confused) Eye Exam: Positive: PERRLA, Conjunctiva & lids normal, EOMI; Negative: Sclera icteric ENT Exam: Positive: Atraumatic, Mucous membr. moist/pink, Pharynx Normal Neck Exam: Positive: Supple; Negative: JVD, thyromegaly Chest Exam: Positive: Clear to auscultation, Normal air movement Heart Exam: Positive: Rate Normal, Regular Rhythm, Normal S1, Normal S2; Negative: Murmurs, Rubs Abdomen Exam: Positive: Normal bowel sounds, Soft; Negative: Tenderness, Hepatospenomegaly Extremity Exam: Positive: Normal pulses; Negative: Clubbing, Cyanosis, Edema Skin Exam: Positive: Nl turgor and temperature; Negative: Rash, Breakdown Psych Exam: Positive: Anxiety, Other (oriented to person only) Assessment /Plan Assessment 88-year-old female with history of chronic thrombocytopenia and follows with oncologist Dr. Divina Herr, atrial fibrillation on chronic anticoagulation, heart failure unknown ejection fraction, hypertension, dyslipidmia, and kidney stones was brought in as she was found by [facility] staff to be staring into space removing clothes from her dresser randomly. Both patient and her reside there. They were unable to provide a history. Due to safety reasons, the patient was admitted for placement. Worsening chronic dementia without signs of any infection. The patient is unsafe to be discharged home with her elderly due to reports of patient staring into space. No empiric antiepileptic medications as patient has not had any recurrent episodes. EEG reviewed Back ground slowing no epileptiform focus. Atrial fibrillation. Currently rate controlled on chronic anticoagulation. Macrocytosis vit b12 and folate normal. Iron deficiency. On iron every 48 hours. Dyslipidemia. On chronic Lipitor. Depression. On Lexapro. Reflux. On Protonix . Hypertension. Controlled on lisinopril, isosorbide and Coreg with holding parameters. Chronic constipation. On a bowel regimen. watch for diarrhea. DISPOSITION: exterminator helper NH placement. Plan/VTE VTE Prophylaxis Ordered?: Yes VS, I&O, 24H, Fishbone Vital Signs/I&O Vital Signs Date Time Temp Pulse Resp B/P (MAP) Pulse Ox O2 Delivery O2 Flow Rate FiO2 05/23/19 08:22 188/82 05/23/19 06:00 97.7 70 16 95 Room Air I&O- Last 24 Hours up to 6 AM 05/23/19 06:00 Intake Total 520 ml Output Total 1025 ml Balance -505 ml HUMBLE TOSCANO MD May 23, 2019 15:02
[2019-05-23] MEDS: OCUVITE 1 TAB PO SCH (17:00)
[2019-05-23] MEDS: MULTIVITAMINS/MINERALS THERAP 1 TAB PO SCH (17:00)
[2019-05-23] MEDS: FERROUS SULFATE 325MG TAB PO SCH (20:36)
[2019-05-23] MEDS: RAMELTEON 8 MG TAB (ROZEREM) PO SCH (20:36)
[2019-05-23] MEDS: MAGNESIUM OXIDE 400 MG TAB (MAG-OX) PO SCH (20:36)
[2019-05-23] MEDS: LATANOPROST 0.005% OPHTH SOLN 2.5 ML OU SCH (20:37)
[2019-05-24 06:00] VITALS: BP 133/69
[2019-05-24 06:24] LABS: BASO % 0.8 % (0.0-1.0); EOS # 0.1 10^3/uL (0.0-0.5); EOS % 1.3 % (0.0-3.0); HEMATOCRIT 36.7 % (36.0-47.0); HEMOGLOBIN 12.3 g/dl (12.0-15.5); LYMPH # 1.2 10^3/uL (1.5-5.0); MEAN CORPUSCULAR HEMOGLOBIN 32.9 pg (27.0-33.0); MEAN CORPUSCULAR HGB CONC 33.5 g/dl (32.0-36.5); MEAN CORPUSCULAR VOLUME 98.1 fl (80.0-96.0); MONO # 0.4 10^3/uL (0.0-0.8); MONO % 9.3 % (0.0-5.0); NEUTROPHILS # 2.2 10^3/uL (1.5-8.5); NEUTROPHILS % 57.3 % (36.0-66.0); RED BLOOD COUNT 3.74 10^6/uL (4.00-5.40); WHITE BLOOD COUNT 3.9 10^3/uL (4.0-10.0)
[2019-05-24 06:29] LABS: PLATELET COUNT, AUTOMATED 90 10^3/uL (150-450)
[2019-05-24] MEDS: ACETAMINOPHEN 500 MG TAB PO PRN (06:44)
[2019-05-24 06:51] LABS: BLOOD UREA NITROGEN 17 MG/DL (7-18); CALCIUM LEVEL 9.7 MG/DL (8.8-10.2); CARBON DIOXIDE LEVEL 24 MEQ/L (21-32); CHLORIDE LEVEL 110 MEQ/L (98-107); CREATININE FOR GFR 0.86 MG/DL (0.55-1.30); GLOMERULAR FILTRATION RATE > 60.0 (>32); GLUCOSE, FASTING 101 MG/DL (70-100); POTASSIUM SERUM 3.9 MEQ/L (3.5-5.1); SODIUM LEVEL 141 MEQ/L (136-145)
[2019-05-24] MEDS: APIXABAN 2.5 MG TAB (ELIQUIS) PO SCH (08:11)
[2019-05-24] MEDS: PANTOPRAZOLE 40MG TAB (PROTONIX) PO SCH (08:11)
[2019-05-24 08:12] VITALS: BP 145/90
[2019-05-24] MEDS: ESCITALOPRAM OXALATE 10 MG TAB (LEXAPRO) PO SCH (08:12)
[2019-05-24] MEDS: LISINOPRIL 20 MG TAB PO SCH (08:12)
[2019-05-24] MEDS: CARVedilol 6.25 MG TAB PO SCH (08:12)
[2019-05-24] MEDS: ISOSORBIDE MON. (IMDUR) 30 MG XR TAB PO SCH (08:13)
[2019-05-24] MEDS: ATORVASTATIN 10 MG TAB PO SCH (08:13)
[2019-05-24] MEDS: POTASSIUM CHLORIDE 10 MEQ SR TABLET PO SCH (08:13)
[2019-05-24] MEDS ORDERED: LISI-538 PO (11:12)
[2019-05-24] MEDS ORDERED: ESCI10TA2 PO (11:12)
[2019-05-24] MEDS ORDERED: RAME8TAB2 PO (11:12)
[2019-05-24] MEDS ORDERED: PANT40TA3 PO (11:12)
--- NOTE | 2019-05-24 17:19 | DS.PDOC ---
Discharge Summary General Date of Admission May 06, 2019 at 16:12 Date of Discharge 05/24/19 Discharge Summary PROCEDURES PERFORMED DURING STAY: [None]. DISCHARGE DIAGNOSES: Advanced dementia unable to take care of herself any more. SECONDARY DIAGNOSIS: Chronic thrombocytopenia and follows with oncologist, atrial fibrillation on chronic anticoagulation, heart failure unknown ejection fraction, hypertension, dyslipidmia, and kidney stones COMPLICATIONS/CHIEF COMPLAINT: Altered Mental Status. HISTORY OF PRESENT ILLNESS: See history and physical HOSPITAL COURSE: 88-year-old female with history of chronic thrombocytopenia and follows with oncologist, atrial fibrillation on chronic anticoagulation, heart failure unknown ejection fraction, hypertension, dyslipidemia, and kidney stones was brought in as she was found by [facility] staff to be staring into space removing clothes from her dresser randomly. Both patient and her reside there. They were unable to provide a history. Due to safety reasons, the patient was admitted for placement. Worsening chronic dementia without signs of any infection. The patient is unsafe to be discharged home with her elderly due to reports of patient staring into space. No empiric antiepileptic medications as patient has not had any recurrent episodes. EEG reviewed Back ground slowing no epileptiform focus. Atrial fibrillation. Currently rate controlled on chronic anticoagulation. Macrocytosis vit b12 and folate normal. Iron deficiency. On iron every 48 hours. Dyslipidemia. On chronic Lipitor. Depression. On Lexapro. Reflux. On Protonix . Hypertension. Controlled on lisinopril, isosorbide and Coreg with holding parameters. Chronic constipation. On a bowel regimen. watch for diarrhea. DISCHARGE MEDICATIONS: Please see below. ALLERGIES: Please see below. PHYSICAL EXAMINATION ON DISCHARGE: VITAL SIGNS: Please see below. General Exam: Positive: Alert, Cooperative, No Acute Distress, Other (pleasantly confused) Eye Exam: Positive: PERRLA, Conjunctiva & lids normal, EOMI; Negative: Sclera icteric ENT Exam: Positive: Atraumatic, Mucous membr. moist/pink, Pharynx Normal Neck Exam: Positive: Supple; Negative: JVD, thyromegaly Chest Exam: Positive: Clear to auscultation, Normal air movement Heart Exam: Positive: Rate Normal, Regular Rhythm, Normal S1, Normal S2; Negative: Murmurs, Rubs Abdomen Exam: Positive: Normal bowel sounds, Soft; Negative: Tenderness, Hepatospenomegaly Extremity Exam: Positive: Normal pulses; Negative: Clubbing, Cyanosis, Edema Skin Exam: Positive: Nl turgor and temperature; Negative: Rash, Breakdown Psych Exam: Positive: Anxiety, Other (oriented to person only) LABORATORY DATA: Please see below. ACTIVITY: [As tolerated]. DIET: As tolerated DISPOSITION: [facility]. DISCHARGE INSTRUCTIONS: [facility] DISCHARGE CONDITION: [Stable]. TIME SPENT ON DISCHARGE: 35 minutes. Vital Signs/I&Os Vital Signs Date Time Temp Pulse Resp B/P (MAP) Pulse Ox O2 Delivery O2 Flow Rate FiO2 05/24/19 08:12 72 145/90 05/24/19 06:00 97.0 18 96 05/23/19 06:00 Room Air I&O- Last 24 Hours up to 6 AM 05/24/19 06:00 Intake Total 720 ml Output Total 200 ml Balance 520 ml Laboratory Data Labs 24H Laboratory Tests 2 05/24/19 05:47: Immature Granulocyte % (Auto) 0.3, Neutrophils (%) (Auto) 57.3, Lymphocytes (%) (Auto) 31.0, Monocytes (%) (Auto) 9.3H, Eosinophils (%) (Auto) 1.3, Basophils (%) (Auto) 0.8, Neutrophils # (Auto) 2.2, Lymphocytes # (Auto) 1.2L, Monocytes # (Auto) 0.4, Eosinophils # (Auto) 0.1, Basophils # (Auto) 0.0, Nucleated Red Blood Cells % (auto) 0.0, Immature Platelet Fraction 2.5, Anion Gap 7L, Glomerular Filtration Rate > 60.0, Calcium Level 9.7 CBC/BMP Laboratory Tests 05/24/19 05:47 Discharge Medications Scheduled Apixaban (Eliquis) 2.5 Mg Tablet, 2.5 MG PO BID, (Reported) Atorvastatin Calcium (Lipitor) 10 Mg Tab, 10 MG PO DAILY, (Reported) Brinzolamide/Brimonidine Tart (Simbrinza 1%-0.2% Eye Drops) 8 Ml Drops.susp, 1 DROP OU TID, (Reported) Carvedilol (Carvedilol) 6.25 Mg Tab, 6.25 MG PO BID, (Reported) Cyclosporine (Restasis) 0.05 % Emu, 1 DROP OU BID, (Reported) Escitalopram Oxalate (Escitalopram Oxalate) 10 Mg Tablet, 10 MG PO DAILY Ferrous Sulfate (Ferrous Sulfate) 325 Mg Tablet, 325 MG PO Q2D, (Reported) EVERY OTHER NIGHT Isosorbide Mononitrate (Isosorbide Mononitrate ER) 60 Mg Tab, 30 MG PO DAILY, (Reported) Lisinopril (Lisinopril) 20 Mg Tablet, 20 MG PO BID Magnesium Oxide (Magnesium) 250 Mg Tab, 250 MG PO DAILY, (Reported) Melatonin (Melatonin) 5 Mg Tablet, 5 MG PO QHS, (Reported) Multivit-Min/FA/Lycopen/Lutein (Centrum Silver Tablet) 1 Each Tablet, 1 TAB PO QPM, (Reported) Pantoprazole Sodium (Pantoprazole Sodium) 40 Mg Tablet.dr, 40 MG PO DAILY Ramelteon (Ramelteon) 8 Mg Tablet, 8 MG PO QHS Travoprost (Travatan Z) 50 Drop/2.5 Ml Soln, 1 DROP OU QHS, (Reported) Vit A/Vit C/Vit E/Zinc/Copper (Preservision Areds Tablet) 1 Each Tablet, 1 TAB PO QPM, (Reported) Scheduled PRN Acetaminophen (Acetaminophen) 500 Mg Tablet, 1,000 MG PO Q8H PRN for PAIN, (Reported) Loperamide HCl (Loperamide) 2 Mg Capsule, 4 MG PO ASDIRECTED PRN for DIARRHEA, (Reported) 2 TABS BY MOUTH FOR FIRST EPISODE OF DIARRHEA. 1 TAB FOR SUBSEQUENT EPISODES NEEDED. MAX OF 8 TABLETS PER DAY. Polyethylene Glycol 3350 (Miralax) 119 Gm Powder, 17 GM PO DAILY PRN for CONSTIPATION, (Reported) dilute in 8 ounces of water or juice Senna (Senna Lax) 8.6 Mg Tablet, 8.6 MG PO DAILY PRN for CONSTIPATION, (Reported) Allergies Coded Allergies: Sulfa (Sulfonamide Antibiotics) (Verified Allergy, Unknown, 11/27/18) bee venom protein (honey bee) (Verified Allergy, Unknown, 05/06/19) niacin (Verified Adverse Reaction, Intermediate, Heart racing, 11/27/18) HUMBLE TOSCANO MD May 24, 2019 17:19
== END 2019-05-24 12:36 | DRG 884 ==
LOC: M ED 11:37 → EDBD 11:37 → M ED INP 16:12 → M PCU 18:20 → M MSPAV 05-08 21:57
PROVIDERS: ADMIT General Practice; ATTEND Internal Medicine Nephrology
DX: F03.90 Unspecified dementia, unspecified severity, without behavioral disturbance, psychotic disturbance, mood disturbance, and anxiety (principal); D46.9 Myelodysplastic syndrome, unspecified; I48.91 Unspecified atrial fibrillation; K59.09 Other constipation; E05.90 Thyrotoxicosis, unspecified without thyrotoxic crisis or storm; I50.9 Heart failure, unspecified; R19.7 Diarrhea, unspecified; I11.0 Hypertensive heart disease with heart failure; D69.6 Thrombocytopenia, unspecified; R41.82 Altered mental status, unspecified; E78.5 Hyperlipidemia, unspecified; G47.00 Insomnia, unspecified; Z87.442 Personal history of urinary calculi; Z88.2 Allergy status to sulfonamides; Z88.8 Allergy status to other drugs, medicaments and biological substances; Z95.0 Presence of cardiac pacemaker; Z90.710 Acquired absence of both cervix and uterus; Z95.5 Presence of coronary angioplasty implant and graft; Z79.01 Long term (current) use of anticoagulants; Z79.899 Other long term (current) drug therapy; Z95.828 Presence of other vascular implants and grafts

== ENCOUNTER → 2019-05-30 | Outpatient (REF) ==
[~2019-05-30] MED LIST changes: +ACET-683 PO; +ACET25TA12 PO; +ELIQ2.5T PO; +ESCI10TA2 PO; +ESCI20TA PO; +FERR1TAB8 PO; +FURO80TA2 PO; +LOPE2CA PO; +MELA1TAB9 PO; +MIRA3350 PO; +OCUVTAB4 PO; +PANT40TA3 PO; +RAME8TAB2 PO; +SENN18TA PO
[2019-05-30 09:44] LABS: HEMATOCRIT 34.7 % (36.0-47.0); HEMOGLOBIN 11.4 g/dl (12.0-15.5); MEAN CORPUSCULAR HEMOGLOBIN 32.9 pg (27.0-33.0); MEAN CORPUSCULAR HGB CONC 32.9 g/dl (32.0-36.5); RED BLOOD COUNT 3.47 10^6/uL (4.00-5.40); WHITE BLOOD COUNT 3.4 10^3/uL (4.0-10.0)
[2019-05-30 09:47] LABS: PLATELET COUNT, AUTOMATED 79 10^3/uL (150-450)
[2019-05-30 10:12] LABS: BLOOD UREA NITROGEN 22 MG/DL (7-18); CALCIUM LEVEL 9.5 MG/DL (8.8-10.2); CARBON DIOXIDE LEVEL 25 MEQ/L (21-32); CHLORIDE LEVEL 113 MEQ/L (98-107); CREATININE FOR GFR 0.84 MG/DL (0.55-1.30); GLOMERULAR FILTRATION RATE > 60.0 (>32); GLUCOSE, FASTING 91 MG/DL (70-100); POTASSIUM SERUM 3.6 MEQ/L (3.5-5.1); SODIUM LEVEL 144 MEQ/L (136-145)
== END ==
PROVIDERS: ATTEND Internal Medicine
DX: I10 Essential (primary) hypertension (principal)

== ENCOUNTER → 2019-06-06 | Outpatient (REF) ==
[2019-06-06 09:51] LABS: HEMATOCRIT 42.1 % (36.0-47.0); HEMOGLOBIN 13.3 g/dl (12.0-15.5); MEAN CORPUSCULAR HEMOGLOBIN 32.1 pg (27.0-33.0); MEAN CORPUSCULAR HGB CONC 31.6 g/dl (32.0-36.5); MEAN CORPUSCULAR VOLUME 101.7 fl (80.0-96.0); RED BLOOD COUNT 4.14 10^6/uL (4.00-5.40); WHITE BLOOD COUNT 3.4 10^3/uL (4.0-10.0)
[2019-06-06 09:58] LABS: PLATELET COUNT, AUTOMATED 85 10^3/uL (150-450)
[2019-06-06 10:15] LABS: CALCIUM LEVEL 10.2 MG/DL (8.8-10.2); CREATININE FOR GFR 1.02 MG/DL (0.55-1.30); GLOMERULAR FILTRATION RATE 54.3 (>32); POTASSIUM SERUM 3.9 MEQ/L (3.5-5.1)
== END ==
PROVIDERS: ATTEND Internal Medicine
DX: I10 Essential (primary) hypertension (principal)

== ENCOUNTER → 2019-06-11 | Outpatient (REF) ==
--- NOTE | 2019-06-11 16:15 | REPPI ---
Single view chest: 06/11/2019. Indication: Wheezing. Comparison: 05/06/2019. Findings: There is no air space consolidation, pleural effusion or pneumothorax. Dual lead left-sided pacer is intact. Cardiac silhouette remains enlarged with right prominence especially - stable. Left axillary vascular stent and chronic left proximal humeral deformity are redemonstrated and stable. Prominent superior mediastinal soft tissue bettered demonstrated on the previous study. Impression: There is no evidence of acute cardiopulmonary process. Electronically Signed by Jerry Farmer DO 06/11/2019 04:07 P
== END ==
PROVIDERS: ATTEND Physician Assistant
DX: R06.2 Wheezing (principal)

== ENCOUNTER 2019-06-12 00:06 | Emergency (ER) | payer MEDICARE ==
[~2019-06-12] VITALS: Ht 162.6 cm; Wt 59.1 kg
[2019-06-12 00:35] LABS: BASO % 0.7 % (0.0-1.0); EOS # 0.1 10^3/uL (0.0-0.5); HEMATOCRIT 37.7 % (36.0-47.0); LYMPH # 1.1 10^3/uL (1.5-5.0); LYMPH % 24.3 % (24.0-44.0); MEAN CORPUSCULAR HGB CONC 31.8 g/dl (32.0-36.5); MEAN CORPUSCULAR VOLUME 100.5 fl (80.0-96.0); MONO # 0.6 10^3/uL (0.0-0.8); MONO % 12.5 % (0.0-5.0); NEUTROPHILS # 2.7 10^3/uL (1.5-8.5); NEUTROPHILS % 60.3 % (36.0-66.0); RED BLOOD COUNT 3.75 10^6/uL (4.00-5.40); WHITE BLOOD COUNT 4.4 10^3/uL (4.0-10.0)
[2019-06-12 00:36] LABS: PLATELET COUNT, AUTOMATED 98 10^3/uL (150-450)
[2019-06-12 00:57] LABS: CALCIUM LEVEL 9.4 MG/DL (8.8-10.2); CREATININE FOR GFR 0.98 MG/DL (0.55-1.30); GLOMERULAR FILTRATION RATE 56.9 (>32); POTASSIUM SERUM 3.7 MEQ/L (3.5-5.1)
[2019-06-12 01:10] LABS: APPEARANCE, URINE CLEAR (CLEAR); BACTERIA, URINE AUTO NEGATIVE (NEGATIVE); BILIRUBIN, URINE AUTO NEGATIVE (NEGATIVE); BLOOD, URINE BLOOD NEGATIVE (NEGATIVE); COLOR, URINE STRAW (YELLOW); GLUCOSE, URINE (UA) AUTO NEGATIVE (NEGATIVE); KETONE, URINE AUTO NEGATIVE (NEGATIVE); LEUKOCYTE ESTERASE, URINE AUTO NEGATIVE (NEGATIVE); NITRITE, URINE AUTO NEGATIVE (NEGATIVE); PROTEIN, URINE AUTO NEGATIVE (NEGATIVE); RBC, URINE AUTO 0 /HPF (0-3); SPECIFIC GRAVITY URINE AUTO 1.008 (1.002-1.035); SQUAMOUS EPITHELIAL CELL UR AU 0 /HPF (0-6); UROBILINOGEN, URINE AUTO 0.2 mg/dL (0.0-2.0); WBC, URINE AUTO 0 /HPF (0-3)
--- NOTE | 2019-06-12 01:10 | REPVR ---
PROCEDURE INFORMATION: Exam: CT Head Without Contrast Exam date and time: 06/12/2019 12:23 AM Clinical history: 88 years old, female; Altered mental status/memory loss and other: BP issue; Confusion or disorientation; Additional info: AMS TECHNIQUE: Imaging protocol: Computed tomography of the head without contrast. Radiation optimization: All CT scans at this facility use at least one of these dose optimization techniques: automated exposure control; mA and/or kV adjustment per patient size (includes targeted exams where dose is matched to clinical indication); or iterative reconstruction. COMPARISON: CT Head without contrast 05/06/2019 12:23 PM FINDINGS: Brain: No intracranial mass, focal mass effect or midline shift. No acute intracranial hemorrhage. Moderate decreased attenuation in periventricular/centrum semiovale white matter. No focal effacement of cortical sulci to indicate acute cortical infarct. Ventricles: Prominent ventricles and CSF spaces suggest parenchymal volume loss. Bones/joints: No calvarial fracture or destructive process. Sinuses: Visualized paranasal sinuses are unremarkable. Mastoid air cells: Mastoid air cells are normally aerated. Orbits: Visualized globes and orbits are unremarkable. Soft tissues: No focal extracranial soft tissue swelling. IMPRESSION: 1. No acute intracranial abnormality. 2. Atrophy and chronic microangiopathic change in supratentorial white matter. Electronically signed by: Krunal Mondragon On 06/12/2019 01:09:38 AM
[2019-06-12] MEDS ORDERED: cloNIDine 0.1 MG TAB PO ONE ×2 (01:15→02:30)
[2019-06-12 01:46] VITALS: BP 194/90
[2019-06-12] MEDS ORDERED: ENALAPRILAT INJ 2.5MG/2ML VIAL IV ONE ×2 (03:15→04:00)
[2019-06-12 05:10] VITALS: BP 163/89
== END 2019-06-12 05:12 | disposition home or self-care (01) ==
LOC: M ED 00:06
DX: F03.90 Unspecified dementia, unspecified severity, without behavioral disturbance, psychotic disturbance, mood disturbance, and anxiety (principal); I10 Essential (primary) hypertension; I48.91 Unspecified atrial fibrillation; D46.9 Myelodysplastic syndrome, unspecified; Z95.5 Presence of coronary angioplasty implant and graft; Z79.899 Other long term (current) drug therapy; Z79.01 Long term (current) use of anticoagulants; Z88.1 Allergy status to other antibiotic agents; Z88.2 Allergy status to sulfonamides; Z88.8 Allergy status to other drugs, medicaments and biological substances; Z91.030 Bee allergy status

== ENCOUNTER → 2019-06-19 | Outpatient (REF) ==
[~2019-06-19] MED LIST changes: +CARV12.5 PO; +DIOV160T6 PO; +DULC10SU2 PR; +ENEMENE PR; +FURO40TA2 PO; +ISOS30TA4 PO; +MILKSUS3 PO; +PANT-23 PO; +POTA1TAB14 PO; +RA M10TA PO
[2019-06-19 10:25] LABS: BLOOD UREA NITROGEN 19 MG/DL (7-18); CALCIUM LEVEL 9.4 MG/DL (8.8-10.2); CARBON DIOXIDE LEVEL 31 MEQ/L (21-32); CHLORIDE LEVEL 107 MEQ/L (98-107); CREATININE FOR GFR 0.91 MG/DL (0.55-1.30); GLOMERULAR FILTRATION RATE > 60.0 (>32); GLUCOSE, FASTING 104 MG/DL (70-100); POTASSIUM SERUM 3.2 MEQ/L (3.5-5.1); SODIUM LEVEL 144 MEQ/L (136-145)
== END ==
PROVIDERS: ATTEND Internal Medicine
DX: R60.9 Edema, unspecified (principal)

== ENCOUNTER 2019-06-21 09:39 | Emergency (ER) | payer MEDICARE ==
[~2019-06-21] VITALS: Ht 170.2 cm; Wt 61.3 kg
[~2019-06-21 09:39] MED LIST changes: -CARV12.5 PO; -DIOV160T6 PO; -DULC10SU2 PR; -ENEMENE PR; -FURO40TA2 PO; -ISOS30TA4 PO; -MILKSUS3 PO; -PANT-23 PO; -POTA1TAB14 PO; -RA M10TA PO
[2019-06-21] MEDS ORDERED: RA M10TA PO (10:21)
[2019-06-21] MEDS ORDERED: PANT-23 PO (10:21)
[2019-06-21] MEDS ORDERED: POTA1TAB14 PO (10:21)
[2019-06-21] MEDS ORDERED: MILKSUS3 PO (10:21)
[2019-06-21] MEDS ORDERED: ENEMENE PR (10:21)
[2019-06-21] MEDS ORDERED: ISOS30TA4 PO (10:21)
[2019-06-21] MEDS ORDERED: DIOV160T6 PO (10:21)
[2019-06-21] MEDS ORDERED: DULC10SU2 PR (10:21)
[2019-06-21] MEDS ORDERED: FURO40TA2 PO (10:21)
[2019-06-21] MEDS ORDERED: CARV12.5 PO (10:21)
--- NOTE | 2019-06-21 10:28 | REP ---
CT brain: 06/21/2019. Indication: Head trauma. Comparison: 06/12/2019. Technique: Unenhanced axial CT images of the brain were obtained from skull base to vertex. Findings: There is no acute intracranial hemorrhage, acute cortical infarction, mass effect, hydrocephalus or acute calvarial fracture. Volume loss and sequelae of chronic small vessel disease are redemonstrated. Bilateral ocular lens replacements are noted. Impression: No acute intracranial process. Volume loss and sequelae of chronic microangiopathic ischemic disease. Electronically Signed by Jerry Farmer DO 06/21/2019 10:20 A
--- NOTE | 2019-06-21 10:38 | REP ---
CT cervical spine: 06/21/2019. Indication: Cervical spine trauma. Comparison: 12/09/2015. Technique: Unenhanced axial CT images of the cervical spine were obtained with coronal and sagittal reconstructions provided. Findings: There is no acute fracture, subluxation or dislocation. There is no hemorrhage within the spinal canal. The prevertebral soft tissues are unremarkable. Bilateral carotid atherosclerotic disease is present. The previously described right thyroid lesion is not within the field of view. Impression: No acute osseous injury of the cervical spine. Electronically Signed by Jerry Farmer DO 06/21/2019 10:29 A
--- NOTE | 2019-06-21 10:42 | REP ---
Single view chest: 06/21/2019. Indication: Chest pain. Comparison: 10 days earlier. Findings: Compared to 10 days earlier, no significant changes are present. Cardiomegaly with right-sided prominence is stable. There is no pleural effusion or pneumothorax. Left-sided dual lead pacer is present with the pacing leads intact. The left humeral head deformity is less conspicuous/not within the field of view on this study. Left axillary vascular stent is again noted. Impression: There is no evidence of acute cardiopulmonary process. Electronically Signed by Jerry Farmer DO 06/21/2019 10:33 A
--- NOTE | 2019-06-21 10:46 | REP ---
Three views left shoulder: 06/21/2019. Indication: Left shoulder pain following fall. Comparison: 06/11/2019. Findings: There is no evidence of acute fracture. Chronic humeral head deformity and left axillary stent are stable. Impression: No acute fracture. Stable chronic left humeral head deformity. Electronically Signed by Jerry Farmer DO 06/21/2019 10:38 A
--- NOTE | 2019-06-21 10:53 | REP ---
Three views of pelvis/left hip: 06/21/2019. Indication: Left hip pain following fall. Comparison: None. Findings: There is no acute fracture, subluxation or dislocation. No lytic or blastic lesions are present. 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 Impression: No acute fracture. Electronically Signed by Jerry Farmer DO 06/21/2019 10:44 A
[2019-06-21 11:03] LABS: HEMATOCRIT 39.1 % (36.0-47.0); HEMOGLOBIN 12.4 g/dl (12.0-15.5); MEAN CORPUSCULAR HEMOGLOBIN 31.4 pg (27.0-33.0); MEAN CORPUSCULAR HGB CONC 31.7 g/dl (32.0-36.5); PLATELET COUNT, AUTOMATED 111 10^3/uL (150-450); RED BLOOD COUNT 3.95 10^6/uL (4.00-5.40); WHITE BLOOD COUNT 5.1 10^3/uL (4.0-10.0)
[2019-06-21 11:48] LABS: CALCIUM LEVEL 9.5 MG/DL (8.8-10.2); CREATININE FOR GFR 1.09 MG/DL (0.55-1.30); GLOMERULAR FILTRATION RATE 50.3 (>32); POTASSIUM SERUM 4.6 MEQ/L (3.5-5.1); THYROID STIMULATING HORMONE 1.17 uIU/ML (0.358-3.740)
[2019-06-21] MEDS ORDERED: ACETAMINOPHEN TAB 650MG DOSE (2X325MG) PO ONE (12:00)
[2019-06-21 14:27] VITALS: BP 168/76
== END 2019-06-21 14:29 | disposition home or self-care (01) ==
LOC: M ED 09:39 → EDBD 09:39 → M ED 14:29
DX: S40.012A Contusion of left shoulder, initial encounter (principal); W01.0XXA Fall on same level from slipping, tripping and stumbling without subsequent striking against object, initial encounter; Y92.128 Other place in nursing home as the place of occurrence of the external cause; I10 Essential (primary) hypertension; I48.91 Unspecified atrial fibrillation; E78.5 Hyperlipidemia, unspecified; Z79.899 Other long term (current) drug therapy; Z79.01 Long term (current) use of anticoagulants; Z88.1 Allergy status to other antibiotic agents; Z88.2 Allergy status to sulfonamides; Z88.8 Allergy status to other drugs, medicaments and biological substances; Z91.030 Bee allergy status

== ENCOUNTER → 2019-06-22 | Outpatient (REF) ==
[~2019-06-22] MED LIST changes: +CARV12.5 PO; +DIOV160T6 PO; +DULC10SU2 PR; +ENEMENE PR; +FURO40TA2 PO; +ISOS30TA4 PO; +MILKSUS3 PO; +PANT-23 PO; +POTA1TAB14 PO; +RA M10TA PO
[2019-06-22 12:05] LABS: CK-MB VALUE MASS 2.9 NG/ML (<3.6); CPK CREATINE PHOSPHOKINASE 135 U/L (26-192); MB/CK RELATIVE INDEX 2.15 (< OR =4); TROPONIN I < 0.02 NG/ML (< 0.10)
--- NOTE | 2019-06-22 13:11 | REP ---
Chest x-ray: Two views. History: Chest pain. Comparison chest x-ray: June 21, 2019. Findings: A bipolar pacemaker is seen in the enlarged right heart via the left side. There is a vascular stent in the left axillary soft tissues. There is slight blunting of the posterior pleural angles and some subpulmonic effusion is suspected on the left. Pulmonary vasculature is not increased. No infiltrate is seen. Impression: Moderate cardiomegaly with pacemaker. Small bilateral effusions, left a little larger than right. Electronically Signed by Neal Chung MD 06/22/2019 02:12 P
--- NOTE | 2019-06-23 00:03 | ECGEPIP ---
[facility] Test Date: 2019-06-22 Pat Name: JOSEMANUEL BRAVO Department: Room: - Gender: Female [employer]: JAJA : [id number] Requested By: RUSSELL Lu Order Number: [id number] Reading MD: Freddy Holm Measurements Intervals [place] Rate: 71 P: IN: 0 QRS: -89 QRSD: 165 T: 89 QT: 469 QTc: 510 Interpretive Statements ELECTRONIC VENTRICULAR PACEMAKER ABNORMAL RHYTHM ECG COMPARED TO THE LAST 3 TRACINGS IN THE SYSTEM, NO SIGNIFICANT CHANGES Electronically Signed on 06-23-2019 0:03:05 EST by Freddy Holm
== END ==
LOC: M EKG 10:29
PROVIDERS: ATTEND Internal Medicine
DX: I51.7 Cardiomegaly (principal); J91.8 Pleural effusion in other conditions classified elsewhere; Z95.0 Presence of cardiac pacemaker

== ENCOUNTER → 2019-06-26 | Outpatient (REF) ==
[2019-06-26 11:09] LABS: CALCIUM LEVEL 9.9 MG/DL (8.8-10.2); CREATININE FOR GFR 1.23 MG/DL (0.55-1.30); GLOMERULAR FILTRATION RATE 43.8 (>32)
== END ==
PROVIDERS: ATTEND Internal Medicine
DX: E87.6 Hypokalemia (principal)

== ENCOUNTER → 2019-07-04 | Outpatient (REF) ==
[2019-07-04 09:07] LABS: HEMATOCRIT 38.2 % (36.0-47.0); MEAN CORPUSCULAR HEMOGLOBIN 30.4 pg (27.0-33.0); MEAN CORPUSCULAR HGB CONC 31.4 g/dl (32.0-36.5); MEAN CORPUSCULAR VOLUME 96.7 fl (80.0-96.0); PLATELET COUNT, AUTOMATED 146 10^3/uL (150-450); RED BLOOD COUNT 3.95 10^6/uL (4.00-5.40); WHITE BLOOD COUNT 5.2 10^3/uL (4.0-10.0)
[2019-07-04 09:29] LABS: CALCIUM LEVEL 9.3 MG/DL (8.8-10.2); CREATININE FOR GFR 0.98 MG/DL (0.55-1.30); GLOMERULAR FILTRATION RATE 56.9 (>32); POTASSIUM SERUM 3.6 MEQ/L (3.5-5.1)
== END ==
PROVIDERS: ATTEND Internal Medicine
DX: I10 Essential (primary) hypertension (principal)

== ENCOUNTER → 2019-08-10 | Outpatient (REF) ==
[2019-08-10 11:39] LABS: HEMATOCRIT 39.2 % (36.0-47.0); HEMOGLOBIN 12.8 g/dl (12.0-15.5); MEAN CORPUSCULAR HEMOGLOBIN 31.1 pg (27.0-33.0); MEAN CORPUSCULAR HGB CONC 32.7 g/dl (32.0-36.5); MEAN CORPUSCULAR VOLUME 95.4 fl (80.0-96.0); RED BLOOD COUNT 4.11 10^6/uL (4.00-5.40); WHITE BLOOD COUNT 3.7 10^3/uL (4.0-10.0)
[2019-08-10 11:40] LABS: PLATELET COUNT, AUTOMATED 99 10^3/uL (150-450)
[2019-08-10 12:03] LABS: CALCIUM LEVEL 9.3 MG/DL (8.8-10.2); CREATININE FOR GFR 1.1 MG/DL (0.55-1.30); GLOMERULAR FILTRATION RATE 49.8 (>32)
== END ==
PROVIDERS: ATTEND Internal Medicine
DX: I10 Essential (primary) hypertension (principal)